=== PATIENT | female | born 1940 | race Caucasian/White ===

== ENCOUNTER → 2016-07-28 | Outpatient (CLI) | payer OTHER, BC ==
[~2016-07-28] MED LIST: ASPEC325 PO; ATOR-26 PO; CALCTAB5 PO; CHOL100010 PO; CLOP1TAB15 PO; COLE625T PO; DESO0.259 TOP; LISI5TAB3 PO; METO25TA3 PO; METO50TA7 PO; MULT-190 PO; MULT-845 PO; OMEG10007 PO; PBUNK PO; PSYL55.43 PO
== END | disposition home or self-care (01) ==
LOC: C.LABSPEC 16:11
PROVIDERS: ATTEND Obstetrics & Gynecology
DX: N89.8 Other specified noninflammatory disorders of vagina (principal)

== ENCOUNTER → 2016-12-08 | Outpatient (CLI) | payer OTHER, BC ==
[2016-12-08 09:45] LABS: BASO % 0.6 %; BASO ABS # 0.05 K/uL (0-0.2); COMPLETE YES; EOS % 2.4 %; HEMATOCRIT 39.5 % (37-47); IG% 0.4 %; LYMPH % 32.8 %; LYMPH ABS # 2.62 K/uL (1.2-3.4); MEAN CELL VOLUME 97.8 fL (80-100); MEAN CORPUSCULAR HEMOGLOBIN 32.2 pg (25-34); MEAN CORPUSCULAR HGB CONC 32.9 g/dl (32-36); MEAN PLATELET VOLUME 10.3 fL (7.4-10.4); MONO % 9.3 %; NEUT % 54.5 %; PLATELET COUNT 219 K/uL (130-400); RED BLOOD COUNT 4.04 M/uL (4.2-5.4); WHITE BLOOD COUNT 7.99 K/uL (4.8-10.8)
[2016-12-08 10:17] LABS: ALT/SGPT 30 U/L (12-78); BLOOD UREA NITROGEN 16 mg/dl (7-18); BUN/CREATININE RATIO 17.7 (10-20); CALCIUM 9.3 mg/dl (8.5-10.1); CARBON DIOXIDE 27 mmol/L (21-32); CHLORIDE 106 mmol/L (98-107); CHOLESTEROL 171 mg/dl (0-200); CREATININE 0.91 mg/dl (0.60-1.20); GLUCOSE 75 mg/dl (70-99); POTASSIUM 3.9 mmol/L (3.5-5.1); SODIUM 140 mmol/L (136-145); TRIGLYCERIDES 200 mg/dl (0-150); VERY LOW DENSITY LIPOPROT CALC 40 mg/dl
[2016-12-08 10:28] LABS: ALB/GLOB RATIO 0.9 (0.9-2); ALKALINE PHOSPHATASE 70 U/L (45-117); AST/SGOT 33 U/L (15-37); CHOLESTEROL/HDL RATIO 2.3; HDL CHOLESTEROL 75 mg/dl; LDL CHOLESTEROL CALCULATED 56 mg/dl
== END | disposition home or self-care (01) ==
LOC: C.LAB 08:25
PROVIDERS: ATTEND Internal Medicine Geriatric Medicine
DX: I25.10 Atherosclerotic heart disease of native coronary artery without angina pectoris (principal); I10 Essential (primary) hypertension; M81.0 Age-related osteoporosis without current pathological fracture; M19.90 Unspecified osteoarthritis, unspecified site; E55.9 Vitamin D deficiency, unspecified; J45.909 Unspecified asthma, uncomplicated; G40.909 Epilepsy, unspecified, not intractable, without status epilepticus

== ENCOUNTER → 2017-02-16 | Outpatient (CLI) | payer OTHER, BC ==
--- NOTE | 2017-02-16 13:09 | MAMMOGRAPHY REPORT ---
BILATERAL DIGITAL SCREENING MAMMOGRAM WITH CAD: 02/16/2017 CLINICAL HISTORY: Routine screening. TECHNIQUE: Bilateral CC and MLO views were obtained. Current study was also evaluated with a Compute r Aided Detection (CAD) system. COMPARISON: Comparison is made to exams dated: 02/12/2016 mammogram, 02/08/2015 mammogram, 02/06/2014 ma mmogram, 02/03/2013 mammogram, 02/03/2012 mammogram, and 01/31/2011 mammogram - [facility] BREAST COMPOSITION: There are scattered areas of fibroglandular density in both breasts. FINDINGS: There are minimal vascular calcifications in the breasts. No suspicious mass, architectura l distortion or cluster of suspicious microcalcifications is seen. IMPRESSION: ACR BI-RADS CATEGORY 1: NEGATIVE There is no mammographic evidence of malignancy. A 1 year screening mammogram is recommended. The pa tient will receive written notification of the results. Approximately 10% of breast cancers are not detected with mammography. A negative mammographic report should not delay biopsy if a clinically suggestive mass is present. Tiara Franco M.D. ay/:02/16/2017 10:28:03 Forestry Aide: Taye DELONG(R)(M), [facility] letter sent: Normal 1/2 BI-RADS Code: ACR BI-RADS Category 1: Negative
== END | disposition home or self-care (01) ==
LOC: C.MAMM 09:53
PROVIDERS: ATTEND Internal Medicine Geriatric Medicine
DX: Z12.31 Encounter for screening mammogram for malignant neoplasm of breast (principal)

== ENCOUNTER → 2017-03-18 | Outpatient (CLI) | payer OTHER, BC ==
--- NOTE | 2017-03-18 09:52 | DIAGNOSTIC IMAGING REPORT ---
(RENAL)RETROPERITON COMP HISTORY: 76 years-old Female R31.29 Microscopic [id number] Renal cyst, [id number] 2.7 cm septated cyst of the upper pole left kidney seen on comparison ultrasound 09/02/2012. COMPARISON: Renal ultrasound 09/02/2012, CT 01/01/2015 TECHNIQUE: Multiple real-time sonographic images of the kidneys and urinary bladder were obtained assessing grayscale appearance and color flow FINDINGS: Right kidney measures 10.3 x 3.7 x 4.1 cm and demonstrates no renal calculi, hydronephrosis or focal mass lesions. Cortical medullary differentiation is preserved. Left kidney measures 9.5 x 4.8 x 4.0 cm and demonstrates no renal calculi or hydronephrosis. Mildly complex cyst of the superior pole measures up to 1.8 cm, previously measuring up to 2.[address] Previously noted 7 mm lesion of the lower pole left kidney is not clearly delineated on this study. Echogenic 8 mm lesion of the inferior pole left kidney is again seen compatible with angiomyolipoma as seen on comparison CT. Mildly increased echogenicity of the bilateral kidneys suggests underlying medical renal disease. Urinary bladder is only partially distended and is unremarkable. Ureteral jets not identified. IMPRESSION: 1. No renal calculi or hydronephrosis. 2. Previously noted 7 mm lesion of the lower pole left kidney is not clearly identified on this study. 3. Mildly complex cyst of the superior pole left kidney, 1.8 cm has slightly decreased in size from comparison. 4. 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 The above report was generated using voice recognition software. It may contain grammatical, syntax or spelling errors. Electronically signed by: Chris Drummond M.D. 03/18/2017 9:50 AM Dictated Date/Time: 03/18/2017 9:43 AM
== END | disposition home or self-care (01) ==
LOC: C.ULTR 09:07
PROVIDERS: ATTEND Urology
DX: R31.29 Other microscopic hematuria (principal); N28.1 Cyst of kidney, acquired; D17.71 Benign lipomatous neoplasm of kidney

== ENCOUNTER → 2017-04-15 | Outpatient (CLI) | payer OTHER, BC | END | disposition home or self-care (01) | LOC: C.LABSPEC 13:34 | PROVIDERS: ATTEND Obstetrics & Gynecology | DX: N89.8 Other specified noninflammatory disorders of vagina (principal) ==

== ENCOUNTER → 2017-04-15 | Outpatient (CLI) | payer OTHER, BC | END | disposition home or self-care (01) | LOC: C.PAPS 14:26 | PROVIDERS: ATTEND Obstetrics & Gynecology | DX: Z12.4 Encounter for screening for malignant neoplasm of cervix (principal); N95.2 Postmenopausal atrophic vaginitis ==

== ENCOUNTER → 2017-07-22 | Day surgery (SDC) | payer OTHER, BC ==
[2017-06-09 09:55] VITALS: BMI 27.0
[2017-07-10 09:49] VITALS: Ht 162.6 cm; Wt 74.5 kg
[~2017-07-22] VITALS: Ht 162.6 cm; Wt 74.5 kg
[~2017-07-22] MED LIST changes: +500ML BSS 0.3ML EPI 1:1000PF IRRIG ONE; +ACETAMINOPHEN 325 MG TAB PO PRN; +AMVISC PLUS 0.8ML SYRINGE INT OCU ONE; -ASPEC325 PO; +ASPI-435 PO; +ATROPINE SULFATE 0.1 MG/ML 5ML SYR IV PRN; +AcetaZOLAMIDE 250 MG TAB PO SCH; +BETAXOLOL HCL 0.25% OP SUSP PER DROP CHARGE OPR SCH; +BRIMONIDINE TART 0.2% OP SOLN PER DROP CHARGE ONE; +BSS FLUSH ONE; +CALC500T83 PO; -CALCTAB5 PO; +CHOL1000 PO; -CHOL100010 PO; -COLE625T PO; +CYCL0.052 OP; +CYCLOPENTOLATE HCL 1% OP SOLN PER DROP CHARGE OPR SCH; -DESO0.259 TOP; +ENDOCOAT 0.85ML SYRINGE INT OCU ONE; +EpHEDrine SULFATE INJ 50 MG/ML AMP IV PRN; +EpINEphrine INJ 1MG/ML AMP 1 MG/ML AMP ONE; +LACTATED RINGER'S 1000ML 500 ML IV SCH; +LIDOCAINE 4% OP SOLN DROP CHARGE ONE; +LIDOCAINE 4% OP SOLN DROP CHARGE OPR SCH; +LIDOCAINE HCL 1% MPF 2 ML VIAL ONE; +LISI5TAB PO; -LISI5TAB3 PO; -METO25TA3 PO; -METO50TA7 PO; +METO50TA8 PO; +MIDAZOLAM HCL 1 MG/ML 2ML VIAL ONE; +MIX: 4ML BSS 1ML EPI 1:1000 PF INSTIL ONE; +MOXIFLOXACIN OPH SOLN PER DROP CHARGE ONE; +MOXIFLOXACIN OPH SOLN PER DROP CHARGE OPR SCH; +OCUCOAT 1 ML SOLN IO ONE; -PBUNK PO; +PHENOBARBITAL PO; +PHENYLEPHRINE HCL 2.5% OP SOLN PER DROP CHARGE OPR SCH; +POVIDONE-IODINE OP SOLN 30 ML BTL ONE; +PROPARACAINE 0.5% OP SOLN PER DROP CHARGE OPR SCH; +PSYL0.524 PO; -PSYL55.43 PO; +TOBRAMYCIN/DEXAMETHASONE OPH OINT PER APPLN CHARGE ONE; +TROPICAMIDE 1% OP SOLN PER DROP CHARGE OPR SCH; +WLC625 PO; +ZOLE5INJ IV
--- NOTE | 2017-07-22 07:27 | History & Physical Bridge - SC ---
H&P Re-Evaluation Bridge Note: I have examined the patient, reviewed the History & Physical and in the interval since the performance of the History & Physical I have noted the following changes of clinical significance: No changes noted
[2017-07-22] MEDS: PHENYLEPHRINE HCL 2.5% OP SOLN PER DROP CHARGE OPR SCH ×2 (08:01→08:10)
[2017-07-22] MEDS: TROPICAMIDE 1% OP SOLN PER DROP CHARGE OPR SCH ×2 (08:03→08:11)
[2017-07-22] MEDS: CYCLOPENTOLATE HCL 1% OP SOLN PER DROP CHARGE OPR SCH ×2 (08:04→08:12)
[2017-07-22] MEDS: MOXIFLOXACIN OPH SOLN PER DROP CHARGE OPR SCH ×2 (08:05→08:08)
--- NOTE | 2017-07-22 09:01 | [facility] Operative Report ---
Operative Report Date of Service Jul 22, 2017. Operative Report 1. PREOPERATIVE DIAGNOSIS: Senile nuclear cataract, right eye. 2. POSTOPERATIVE DIAGNOSIS: Senile nuclear cataract, right eye. 3. PROCEDURE: Phacoemulsification of right cataract with posterior chamber lens implant, type Bausch [employer] Lomb, model MI60L, power +15 diopters. ANESTHESIA: Local standby. SURGEON: Dr. Albert. COMPLICATIONS: None. OPERATING TIME: 10 minutes. 4. OPERATION AND FINDINGS: DESCRIPTION OF PROCEDURE: The right pupil was dilated. The anesthetic was administered using a topical technique. The right eye was prepped and draped. A speculum was placed. A clear corneal incision was formed. The chamber was filled with Amvisc Plus and Endocoat. Epinephrine solution was used. A paracentesis was placed. A capsulorrhexis was performed. The nucleus was hydrodissected. The lens was removed with phacoemulsification. Time was 4.16 seconds. The aspiration unit was used to remove the cortex. The capsule was filled with Amvisc Plus. The lens implant was folded and placed into the capsule. The incision was hydrated. The Amvisc was aspirated. The wound was secure. The chamber was deep. The pupil was round. Brimonidine, TobraDex ointment and Vigamox solution were placed. The speculum was removed. The patient was returned to the Recovery Room in stable condition. I attest to the content of the Intraoperative Record and any orders documented therein. Any exceptions are noted below. The scribe's documentation has been prepared in my presence, under my direction and personally reviewed by me in its entirety. I confirm that the note above accurately reflects all work, treatment, procedures, and medical decision making performed by me. I personally scribed for Claudy Albert M.D. (NEELA) on 07/22/17 at 09:01. Electronically submitted by Cee Mack ([email or web address]).
--- NOTE | 2017-07-22 09:04 | Discharge Instructions-SurgCtr ---
Discharge Instructions Date of Service Jul 22, 2017. Visit Reason for Visit: Cataract Right Eye Discharge Discharge Diagnosis / Problem: lens implant right eye Discharge Goals Goal(s): Improve function Activity Recommendations Activity Limitations: resume your previous activity Lifting Limitations: no more than 10 pounds Exercise/Sports Limitations: gradually increase as tolerated May Resume Sexual Activity: when tolerated Shower/Bathe: tomorrow Driving or Machine Use: resume 1 day after discharge Anesthesia . Post Anesthesia Instructions: If you have had General Anesthesia or IV Sedation: * Do not drive today. * Resume driving when surgeon permits. * Do not make important decisions or sign legal documents today. * Call surgeon for: 1. Temperature elevations greater than 101 degrees F. 2. Uncontrollable pain. 3. Excessive bleeding. 4. Persistent nausea and vomiting. 5. Medication intolerance (nausea, vomiting or rash). * For nausea and vomiting use only clear liquids such as: tea, soda, bouillon until nausea subsides, then gradually increase diet as tolerated. * If you have any concerns or questions, call your surgeon's office. If physician is unavailable and it is an emergency, call 911 or go to the nearest emergency room. . Instructions / Follow-Up Instructions / Follow-Up ACTIVITY RECOMMENDATIONS: * Light activities. * Mild irritation and blurred vision are common for the first few days. * You may walk outside, read, watch television. * Redness around the white part of the eye is common. MEDICATIONS: Resume previous medications unless instructed otherwise by your surgeon. * Take white Diamox (Acetazolamide) tablet at 1 pm today. Start all eye drops at 1 pm today: * Eye drops (today and tomorrow): Prednisone - one drop in operative eye every 3 hours while awake Ofloxacin - one drop in operative eye every 3 hours while awake Ilevro - one drop in operative eye once daily Continue Restasis as usual in Left eye only. SPECIAL CARE INSTRUCTIONS: * Tape plastic shield over eye to sleep at night. Call your doctor at with any concerns or problems. FOLLOW UP VISIT: Follow-up with Dr Albert at [place] office as scheduled. Diet Recommendations Home Diet: no limitations Procedures Procedures Performed: Right Cataract Phacoemulsification With Intraocular Lens Implant Pending Studies Studies pending at discharge: no Medical Emergencies . Who to Call and When: Medical Emergencies: If at any time you feel your situation is an emergency, please call 911 immediately. . Non-Emergent Contact Non-Emergency issues call your: Security Delivery Specialist Call Non-Emergent contact if: your pain is not controlled [phone] . . "Provider Documentation" section prepared by Claudy Albert. .
[2017-07-22 09:05] VITALS: TEMP 36.4
[2017-07-22 09:19] VITALS: BP 119/74; PULSE 68; O2SAT 96
--- NOTE | 2017-07-22 09:24 | Anesthesia Progress Nt - [facility] ---
Anesthesia Post Op Note Date & Time Jul 22, 2017 at 09:23 Vital Signs Pain Intensity: 0 Vital Signs Past 12 Hours Date Time Temp Pulse Resp B/P (MAP) Pulse Ox O2 Delivery O2 Flow Rate FiO2 07/22/17 09:19 68 20 119/74 (89) 96 Room Air 07/22/17 09:05 36.4 65 16 113/73 (86) 97 Room Air 07/22/17 07:37 36.4 76 16 145/84 (104) 94 Room Air Notes Mental Status: alert / awake / arousable, participated in evaluation Pt Amnestic to Procedure: Yes Nausea / Vomiting: adequately controlled Pain: adequately controlled Airway Patency, RR, SpO2: stable & adequate BP & HR: stable & adequate Hydration State: stable & adequate Anesthetic Complications: no major complications apparent
== END | disposition home or self-care (01) ==
LOC: X.SURG 07:12
PROVIDERS: ATTEND Specialist
DX: H25.11 Age-related nuclear cataract, right eye (principal); I10 Essential (primary) hypertension; I51.9 Heart disease, unspecified; Z79.899 Other long term (current) drug therapy

== ENCOUNTER → 2017-08-12 | Day surgery (SDC) | payer OTHER, BC ==
[2017-08-03 09:54] VITALS: Ht 162.6 cm; Wt 74.5 kg
[~2017-08-12] VITALS: Ht 162.6 cm; Wt 74.5 kg
[~2017-08-12] MED LIST changes: +BETAXOLOL HCL 0.25% OP SUSP PER DROP CHARGE OPL SCH; -BETAXOLOL HCL 0.25% OP SUSP PER DROP CHARGE OPR SCH; -CYCLOPENTOLATE HCL 1% OP SOLN PER DROP CHARGE OPR SCH; +FENTANYL CITRATE INJ 50 MCG/1 ML 2 ML VIAL IV PRN; +FLUMAZENIL 0.1 MG/1 ML 10 ML VIAL IV PRN; +HYDROmorphone INJ 2 MG/ML SYR/VIAL IV PRN; +LABETALOL HCL IV 5 MG/ML 20ML IV PRN; +LIDOCAINE 4% OP SOLN DROP CHARGE OPL SCH; -LIDOCAINE 4% OP SOLN DROP CHARGE OPR SCH; +MEPERIDINE HCL 25 MG/ML CARP IV PRN; -MOXIFLOXACIN OPH SOLN PER DROP CHARGE OPR SCH; +NALOXONE HCL 0.4 MG/1 ML VIAL/CARP IV PRN; -OCUCOAT 1 ML SOLN IO ONE; +ONDANSETRON INJ 2 MG/ML 2 ML VIAL IV PRN; +PHENYLEPHRINE 100MCG/ML 5ML SYR IV PRN; -PHENYLEPHRINE HCL 2.5% OP SOLN PER DROP CHARGE OPR SCH; +PROPARACAINE 0.5% OP SOLN PER DROP CHARGE OPL SCH; -PROPARACAINE 0.5% OP SOLN PER DROP CHARGE OPR SCH; -TROPICAMIDE 1% OP SOLN PER DROP CHARGE OPR SCH
[2017-08-12] MEDS: PHENYLEPHRINE HCL 2.5% OP SOLN PER DROP CHARGE OPL SCH ×2 (07:18→07:23)
[2017-08-12] MEDS: TROPICAMIDE 1% OP SOLN PER DROP CHARGE OPL SCH ×2 (07:19→07:24)
[2017-08-12] MEDS: CYCLOPENTOLATE HCL 1% OP SOLN PER DROP CHARGE OPL SCH ×2 (07:20→07:25)
[2017-08-12] MEDS: MOXIFLOXACIN OPH SOLN PER DROP CHARGE OPL SCH ×2 (07:21→07:31)
--- NOTE | 2017-08-12 08:06 | [facility] Operative Report ---
Operative Report Date of Service Aug 12, 2017. Operative Report 1. PREOPERATIVE DIAGNOSIS: Senile nuclear cataract, left eye. 2. POSTOPERATIVE DIAGNOSIS: Senile nuclear cataract, left eye. 3. PROCEDURE: Phacoemulsification of left cataract with posterior chamber lens implant, type Bausch [employer] Lomb, model MI60L, power +15.0 diopters. ANESTHESIA: Local standby. SURGEON: Dr. Albert. COMPLICATIONS: None. OPERATING TIME: 10 minutes. 4. OPERATION AND FINDINGS: DESCRIPTION OF PROCEDURE: The left pupil was dilated. The anesthetic was administered using a topical technique. The left eye was prepped and draped. A speculum was placed. A clear corneal incision was formed. The chamber was filled with Amvisc Plus and Endocoat. Epinephrine solution was used. A paracentesis was placed. A capsulorrhexis was performed. The nucleus was hydrodissected. The lens was removed with phacoemulsification. Time was 3.36 seconds. The aspiration unit was used to remove the cortex. The capsule was filled with Amvisc Plus. The lens implant was folded and placed into the capsule. The incision was hydrated. The Amvisc was aspirated. The wound was secure. The chamber was deep. The pupil was round. Brimonidine, TobraDex ointment and Vigamox solution were placed. The speculum was removed. The patient was returned to the Recovery Room in stable condition. I attest to the content of the Intraoperative Record and any orders documented therein. Any exceptions are noted below. The scribe's documentation has been prepared in my presence, under my direction and personally reviewed by me in its entirety. I confirm that the note above accurately reflects all work, treatment, procedures, and medical decision making performed by me. I personally scribed for Claudy Albert M.D. (NEELA) on 08/12/17 at 08:06. Electronically submitted by Cee Mack ([email or web address]).
--- NOTE | 2017-08-12 08:08 | Discharge Instructions-SurgCtr ---
Discharge Instructions Date of Service Aug 12, 2017. Visit Reason for Visit: Cataract Left Eye Discharge Discharge Diagnosis / Problem: lens implant left eye Discharge Goals Goal(s): Improve function Activity Recommendations Activity Limitations: resume your previous activity Lifting Limitations: no more than 10 pounds Exercise/Sports Limitations: gradually increase as tolerated May Resume Sexual Activity: when tolerated Shower/Bathe: tomorrow Driving or Machine Use: resume 1 day after discharge Anesthesia . Post Anesthesia Instructions: If you have had General Anesthesia or IV Sedation: * Do not drive today. * Resume driving when surgeon permits. * Do not make important decisions or sign legal documents today. * Call surgeon for: 1. Temperature elevations greater than 101 degrees F. 2. Uncontrollable pain. 3. Excessive bleeding. 4. Persistent nausea and vomiting. 5. Medication intolerance (nausea, vomiting or rash). * For nausea and vomiting use only clear liquids such as: tea, soda, bouillon until nausea subsides, then gradually increase diet as tolerated. * If you have any concerns or questions, call your surgeon's office. If physician is unavailable and it is an emergency, call 911 or go to the nearest emergency room. . Instructions / Follow-Up Instructions / Follow-Up ACTIVITY RECOMMENDATIONS: * Light activities. * Mild irritation and blurred vision are common for the first few days. * You may walk outside, read, watch television. * Redness around the white part of the eye is common. MEDICATIONS: Resume previous medications unless instructed otherwise by your surgeon. * Take white Diamox (Acetazolamide) tablet at 1 pm today. Start all eye drops at 1 pm today: * Eye drops (today and tomorrow): Prednisone - one drop in operative eye every 3 hours while awake Ofloxacin - one drop in operative eye every 3 hours while awake Ilevro - one drop in operative eye once daily SPECIAL CARE INSTRUCTIONS: * Tape plastic shield over eye to sleep at night. Call your doctor at with any concerns or problems. FOLLOW UP VISIT: Follow-up with Dr Albert at [place] office as scheduled. Diet Recommendations Home Diet: no limitations Procedures Procedures Performed: Left Eye Cataract Phacoemulsification With Intraocular Lens Implant Pending Studies Studies pending at discharge: no Medical Emergencies . Who to Call and When: Medical Emergencies: If at any time you feel your situation is an emergency, please call 911 immediately. . Non-Emergent Contact Non-Emergency issues call your: Warehouse Distribution Manager Call Non-Emergent contact if: your pain is not controlled [phone] . . "Provider Documentation" section prepared by Claudy Albert. .
[2017-08-12 08:09] VITALS: TEMP 36.7
--- NOTE | 2017-08-12 08:13 | Anesthesia Progress Nt - [facility] ---
Anesthesia Post Op Note Date & Time Aug 12, 2017 at 08:12 Vital Signs Pain Intensity: 0 Vital Signs Past 12 Hours Date Time Temp Pulse Resp B/P (MAP) Pulse Ox O2 Delivery O2 Flow Rate FiO2 08/12/17 07:07 37.3 88 16 143/89 (107) 95 Room Air Notes Mental Status: alert / awake / arousable, participated in evaluation Pt Amnestic to Procedure: Yes Nausea / Vomiting: adequately controlled Pain: adequately controlled Airway Patency, RR, SpO2: stable & adequate BP & HR: stable & adequate Hydration State: stable & adequate Anesthetic Complications: no major complications apparent The patient is awake and her vitals are stable.
[2017-08-12 08:29] VITALS: BP 130/80; PULSE 71; O2SAT 97
== END | disposition home or self-care (01) ==
LOC: X.SURG 06:50
PROVIDERS: ATTEND Specialist
DX: H25.12 Age-related nuclear cataract, left eye (principal); I10 Essential (primary) hypertension; I51.9 Heart disease, unspecified; Z88.0 Allergy status to penicillin; Z88.8 Allergy status to other drugs, medicaments and biological substances; Z79.899 Other long term (current) drug therapy; Z79.02 Long term (current) use of antithrombotics/antiplatelets

== ENCOUNTER → 2017-09-02 | Outpatient (CLI) | payer OTHER, BC ==
[~2017-09-02] MED LIST changes: -500ML BSS 0.3ML EPI 1:1000PF IRRIG ONE; -ACETAMINOPHEN 325 MG TAB PO PRN; -AMVISC PLUS 0.8ML SYRINGE INT OCU ONE; -ATROPINE SULFATE 0.1 MG/ML 5ML SYR IV PRN; -AcetaZOLAMIDE 250 MG TAB PO SCH; -BETAXOLOL HCL 0.25% OP SUSP PER DROP CHARGE OPL SCH; -BRIMONIDINE TART 0.2% OP SOLN PER DROP CHARGE ONE; -BSS FLUSH ONE; -ENDOCOAT 0.85ML SYRINGE INT OCU ONE; -EpHEDrine SULFATE INJ 50 MG/ML AMP IV PRN; -EpINEphrine INJ 1MG/ML AMP 1 MG/ML AMP ONE; -FENTANYL CITRATE INJ 50 MCG/1 ML 2 ML VIAL IV PRN; -FLUMAZENIL 0.1 MG/1 ML 10 ML VIAL IV PRN; -HYDROmorphone INJ 2 MG/ML SYR/VIAL IV PRN; -LABETALOL HCL IV 5 MG/ML 20ML IV PRN; -LACTATED RINGER'S 1000ML 500 ML IV SCH; -LIDOCAINE 4% OP SOLN DROP CHARGE ONE; -LIDOCAINE 4% OP SOLN DROP CHARGE OPL SCH; -LIDOCAINE HCL 1% MPF 2 ML VIAL ONE; -MEPERIDINE HCL 25 MG/ML CARP IV PRN; -MIDAZOLAM HCL 1 MG/ML 2ML VIAL ONE; -MIX: 4ML BSS 1ML EPI 1:1000 PF INSTIL ONE; -MOXIFLOXACIN OPH SOLN PER DROP CHARGE ONE; -NALOXONE HCL 0.4 MG/1 ML VIAL/CARP IV PRN; -ONDANSETRON INJ 2 MG/ML 2 ML VIAL IV PRN; -PHENYLEPHRINE 100MCG/ML 5ML SYR IV PRN; -POVIDONE-IODINE OP SOLN 30 ML BTL ONE; -PROPARACAINE 0.5% OP SOLN PER DROP CHARGE OPL SCH; -TOBRAMYCIN/DEXAMETHASONE OPH OINT PER APPLN CHARGE ONE
[2017-09-02 09:38] LABS: BASO % 0.2 %; BASO ABS # 0.02 K/uL (0-0.2); EOS % 2.7 %; EOS ABS # 0.24 K/uL (0-0.5); HEMATOCRIT 39.6 % (37-47); HEMOGLOBIN 12.9 g/dL (12.0-16.0); IG# 0.03 K/uL (0.00-0.02); LYMPH % 25.8 %; LYMPH ABS # 2.25 K/uL (1.2-3.4); MEAN CELL VOLUME 97.5 fL (80-100); MEAN CORPUSCULAR HEMOGLOBIN 31.8 pg (25-34); MEAN CORPUSCULAR HGB CONC 32.6 g/dl (32-36); MEAN PLATELET VOLUME 10.2 fL (7.4-10.4); MONO % 8.5 %; MONO ABS # 0.74 K/uL (0.11-0.59); NEUT % 62.5 %; NEUT ABS # 5.45 K/uL (1.4-6.5); PLATELET COUNT 208 K/uL (130-400); RED CELL DISTRIBUTION WIDTH CV 13.2 % (11.5-14.5); RED CELL DISTRIBUTION WIDTH SD 47.2 fL (36.4-46.3); WHITE BLOOD COUNT 8.73 K/uL (4.8-10.8)
[2017-09-02 09:52] LABS: ALBUMIN 3.2 gm/dl (3.4-5.0); BLOOD UREA NITROGEN 15 mg/dl (7-18); CALCIUM 8.9 mg/dl (8.5-10.1); CARBON DIOXIDE 28 mmol/L (21-32); CREATININE 1.01 mg/dl (0.60-1.20); GLUCOSE 90 mg/dl (70-99); POTASSIUM 3.7 mmol/L (3.5-5.1); SODIUM 139 mmol/L (136-145)
[2017-09-02 10:11] LABS: ALKALINE PHOSPHATASE 75 U/L (45-117); ALT/SGPT 22 U/L (12-78); AST/SGOT 26 U/L (15-37); CHOLESTEROL 159 mg/dl (0-200); LDL CHOLESTEROL CALCULATED 62 mg/dl; TOTAL PROTEIN 7.2 gm/dl (6.4-8.2)
== END | disposition home or self-care (01) ==
LOC: C.LAB 08:29
PROVIDERS: ATTEND Physician Assistant Medical
DX: Z00.00 Encounter for general adult medical examination without abnormal findings (principal); I25.10 Atherosclerotic heart disease of native coronary artery without angina pectoris; M81.0 Age-related osteoporosis without current pathological fracture; E78.5 Hyperlipidemia, unspecified; I10 Essential (primary) hypertension; J45.909 Unspecified asthma, uncomplicated; G40.909 Epilepsy, unspecified, not intractable, without status epilepticus; E55.9 Vitamin D deficiency, unspecified; D17.71 Benign lipomatous neoplasm of kidney; R23.9 Unspecified skin changes

== ENCOUNTER → 2017-12-21 | Outpatient (CLI) | payer OTHER, BC | END | disposition home or self-care (01) | LOC: C.MAMM 13:04 | PROVIDERS: ATTEND Physician Assistant Medical | DX: M81.0 Age-related osteoporosis without current pathological fracture (principal) ==

== ENCOUNTER → 2018-01-08 | Outpatient (CLI) | payer OTHER, BC ==
[2018-01-08 09:37] LABS: BASO % 0.6 %; BASO ABS # 0.05 K/uL (0-0.2); EOS ABS # 0.35 K/uL (0-0.5); HEMATOCRIT 39.7 % (37-47); HEMOGLOBIN 12.9 g/dL (12.0-16.0); IG# 0.05 K/uL (0.00-0.02); LYMPH % 25.5 %; LYMPH ABS # 2.23 K/uL (1.2-3.4); MEAN CELL VOLUME 97.8 fL (80-100); MEAN CORPUSCULAR HEMOGLOBIN 31.8 pg (25-34); MEAN CORPUSCULAR HGB CONC 32.5 g/dl (32-36); MEAN PLATELET VOLUME 10.5 fL (7.4-10.4); MONO % 10.8 %; MONO ABS # 0.94 K/uL (0.11-0.59); NEUT % 58.5 %; NEUT ABS # 5.11 K/uL (1.4-6.5); PLATELET COUNT 259 K/uL (130-400); RED CELL DISTRIBUTION WIDTH CV 13.4 % (11.5-14.5); RED CELL DISTRIBUTION WIDTH SD 48.2 fL (36.4-46.3); WHITE BLOOD COUNT 8.73 K/uL (4.8-10.8)
[2018-01-08 09:44] LABS: BLOOD UREA NITROGEN 18 mg/dl (7-18); CALCIUM 8.6 mg/dl (8.5-10.1); CARBON DIOXIDE 28 mmol/L (21-32); CREATININE 0.95 mg/dl (0.60-1.20); GLUCOSE 82 mg/dl (70-99); POTASSIUM 4.1 mmol/L (3.5-5.1); SODIUM 138 mmol/L (136-145)
== END | disposition home or self-care (01) ==
LOC: C.LAB 07:54
PROVIDERS: ATTEND Physician Assistant Medical
DX: Z00.00 Encounter for general adult medical examination without abnormal findings (principal); I25.10 Atherosclerotic heart disease of native coronary artery without angina pectoris; M81.0 Age-related osteoporosis without current pathological fracture; E78.5 Hyperlipidemia, unspecified; I10 Essential (primary) hypertension; J45.909 Unspecified asthma, uncomplicated; G40.909 Epilepsy, unspecified, not intractable, without status epilepticus; E55.9 Vitamin D deficiency, unspecified; D17.71 Benign lipomatous neoplasm of kidney; R23.9 Unspecified skin changes

== ENCOUNTER 2022-06-24 09:25 | Inpatient (IN) ==
[2022-06-24] MEDS ORDERED: SODIUM CHLORIDE 0.9% 500 ML IV SCH (10:00)
[2022-06-24 10:25] LABS: Hematocrit (blood only) 43.5 % (34.1-44.9); Hemoglobin 14.2 g/dl (12.0-16.0); Mean Corpuscular Hemoglobin 32.3 pg (25.0-34.0); Mean Corpuscular Hgb Conc 32.6 g/dL (32.0-36.0); Mean Corpuscular Volume 98.9 fL (80.0-100.0); Platelet Count 264 K/uL (130-400); RDW Coefficient of Variation 13.2 % (11.5-14.5); RDW Standard Deviation 48.4 fL (36.4-46.3); White Blood Count 12.27 K/ul (4.8-10.8)
[2022-06-24 10:29] LABS: Albumin Globulin Ratio 1.1 (0.9-2); Albumin Level 3.2 gm/dl (3.4-5.0); BUN Creatinine Ratio 24.4 (10-20); Bilirubin,Total 0.8 mg/dl (0.2-1.0); Calcium 8.1 mg/dl (8.5-10.1); Creatinine Clr Calc Pharmacy 34.6 ml/min; Est GFR (African American) 43.5 ml/min; Est GFR (Non-African American) 37.6 ml/min; Globulin 2.8 gm/dl (2.5-4.0); Magnesium 1.7 mg/dl (1.7-2.4); Potassium 4.2 mmol/L (3.5-5.1)
[2022-06-24 10:37] LABS: Troponin I High Sensitivity 89.7 pg/ml (0-14)
[2022-06-24 11:06] LABS: Basophils # (auto) 0.02 K/uL (0-0.2); Basophils % (auto) 0.2 %; Eosinophils # (auto) 0.05 K/uL (0-0.50); Eosinophils % (auto) 0.4 %; Immature Granulocytes # (auto) 0.04 K/uL (0.00-0.02); Immature Granulocytes % (auto) 0.3 %; Lymphocytes # (auto) 3.55 K/uL (1.2-3.4); Lymphocytes % (auto) 28.9 %; Monocytes # (auto) 0.31 K/uL (0.24-0.82); Monocytes % (auto) 2.5 %; Neutrophils % (auto) 67.7 %; Toxic Vacuolation 2+
--- NOTE | 2022-06-24 11:10 | Emergency Department Note ---
Impression & Plan Allergic reaction, Weakness, Falls, Elevated troponin ED Provider Note INFORMANT: Patient and son ED PROVIDER(S): Zaki Nick DO CHIEF COMPLAINT: Allergic reaction, weakness, falls PLAN: Disposition: Admission Condition: Stable Outpatient prescription management: none Referral: I spoke with the hospitalist, who will see the patient for admission/observation and further evaluation and consultation. MEDICAL DECISION MAKING: This is a 81-year-old female who presents to the ED with a chief complaint of recurrence of allergic reaction. The patient was seen here 3 days in a row for the same issue. She is believed to possibly have a allergic reaction to Macrob id. She was treated as an outpatient yesterday and the day before that. The patient states that she is becoming weak over the past several days since her issues started. She stopped taking Macrobid on of last week. She has not taken it since. She has recurrence of swelling of her face to the point where EMS provided her with subcutaneous epinephrine, IV Benadryl, IV Solu- Medrol and IV fluids during her transport here. The patient's lips were swollen. Her eyes were swollen shut. She complained of a swollen tongue as well. Those have improved since she was treated by EMS. The patient fell last night and was on the floor through the night, according to her son. She states that she has not been eating or drinking well because of her symptoms. She feels lightheaded when she gets up. She does not think that she passed out. The patient's exam does reveal some facial edema as well as erythema in various parts of her body. Her lungs are clear. Vital signs are stable. White blood cell count reveals a mild leukocytosis possibly related to recent Paradione use. Her CK was 688 suggesting some mild rhabdomyolysis possibly from being on the floor. The troponin is elevated 89.7. Her EKG shows a sinus tach at a rate of 110. This is concerning for some myocardial ischemia although no acute PA is suspected. A COVID swab was negative and a chest x-ray did not show acute process. The patient was told the results. Because of her symptoms and ongoing recurrence of allergic reaction without improvement with outpatient medications and on certain source, she will be seen by the hospitalist for further evaluation and care. I did speak with the hospitalist about the patient. Triage Nursing notes reviewed. Vital Signs: reviewed Prior /Outside records reviewed: none Differential diagnosis: Allergic reaction, generalized weakness, electrolyte abnormality, myocardial ischemia, pneumonia, other. Diagnostics, as interpreted by me: 12 lead ECG: Sinus tach at a rate of 110. No ST elevation. No PVCs. Normal QTC Cardiac Monitoring: none Medical decision rules: none Imaging studies: Chest x-ray: No acute disease. No pneumonia or pneumothorax. Procedures: none. Critical care: none. HPI: See MDM above. PAST MEDICAL HISTORY: See Below PAST SURGICAL HISTORY: See Below SOCIAL HISTORY: See Below HOME MEDICATIONS: See Below ALLERGIES: See Below VITALS: See Below PHYSICAL EXAMINATION: CONSTITUTIONAL/VITAL SIGNS: Reviewed GENERAL: Non-toxic in appearance. INTEGUMENTARY: Warm, dry, and Marie. HEAD: Normocephalic. EYES: without scleral icterus. ENT/OROPHARYNX: clear and moist. RESPIRATORY: No increased work of breathing. Lungs clear. CARDIOVASCULAR: Regular rate. Regular rhythm. GI/ABDOMEN: Soft and nontender. . EXTREMITIES: Normal NEUROLOGICAL: Intact without focal deficits. PSYCHIATRIC: Normal affect. MUSCULOSKELETAL: Normal. TRIAGE NURSING DOCUMENTATION REVIEWED. 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 Asthma Blood clot associated with vein wall inflammation Chronic kidney disease Cystocele, midline Dyslipidemia Gastroesophageal reflux disease Glenohumeral arthritis Hearing loss History of allergic drug reaction History of postmenopausal bleeding Hypertension Irritable bowel syndrome Myocardial infarction Nodular thyroid disease (~06/2019) neg FNA Osteoarthritis Osteoporosis PAC (premature atrial contraction) Pessary maintenance Renal cyst, acquired (~06/2019) Seizure disorder Stroke syndrome Vitamin D deficiency Surgical History H/O colonoscopy History of endometrial biopsy History of tonsillectomy Hx of cataract surgery Hx of cholecystectomy S/P knee replacement Family History Father Patient's father is Father At Age 72 Heart disease Mother Patient's mother is Mother At Age 62 Parkinson disease Family/Other Cerebral atherosclerosis Coronary atherosclerosis Denies family history of Ovarian cancer Prostate cancer Myocardial infarction Breast cancer Colorectal cancer Social History Smoking Status: Never smoker Second Hand Exposure: No; Hx Alcohol Use: No Hx Substance Use: No Preferred Language: Yoruba Communication Ability: Effective Visual Impairment: Limited Hearing Ability: Normal Aromatherapist Required: No marital status: / Current Living Situation: Alone current occupational status: employed How many Children do You have: 1 Feels Safe at Home: Yes Childhood Exposure to Second-Hand Smoke: No caffeine: No Dental Care, Regularly: Yes Physical Activity Frequency: Does not Exercise Seatbelt Use: always Sunscreen Use: Yes Allergies Allergies Allergy/AdvReac Type Severity Reaction Status Date / Time influenza virus vaccine tvs Allergy Intermediate rash Verified 06/22/22 17:47 (65 yr and up) [From Fluad (65yr+)(PF)] nickel Allergy Intermediate RASH Verified 06/22/22 17:47 Penicillins Allergy Intermediate RASH Verified 06/22/22 17:47 vaccine adjuvant emulsion Allergy Intermediate rash Verified 06/22/22 17:47 MF59C.1 [From Fluad (65yr+)(PF)] emollient combination no. 46 Allergy Unknown Unknown Verified 06/22/22 17:47 [From Mederma] pneumococcal 7-valent Allergy Unknown Unknown Verified 06/22/22 17:47 conjugate to [From Prevnar] alendronate sodium AdvReac Intermediate CHEST Verified 06/22/22 17:47 DISCOMFORT AND INDIGESTION allantoin AdvReac Mild MEDERMA - Verified 06/22/22 17:47 BLISTERS Home Meds Home Medications Medication Instructions Recorded Confirmed aspirin 81 mg tablet,delayed 81 mg PO DAILY 12/15/18 06/22/22 release (Adult Low Dose Aspirin) multivitamin (Daily Multi-Vitamin 1 tab PO DAILY 03/24/19 06/22/22 tablet) vit C 250 mg-vit E 90 mg-zinc 40 1 tab PO BID 03/29/19 06/22/22 mg-copper 1 km-numwwd-xrkgiu capsule (PreserVision AREDS-2) cholecalciferol (vitamin D3) 125 5,000 units PO DAILY 08/08/19 06/22/22 mcg (5,000 unit) capsule psyllium husk 0.4 gram capsule 0.4 g PO DAILY PRN constipation 10/23/21 06/22/22 (Metamucil) omega 9-yhq-zfx-fish oil 1,000 mg 1 cap PO BID 05/01/22 06/22/22 (120 mg-180 mg) capsule (Fish Oil) calcium carbonate 500 mg calcium 500 mg PO BID 06/22/22 06/22/22 (1,250 mg) tablet lisinopril 5 mg tablet 5 mg PO DAILY 06/22/22 06/22/22 Previous Rx's Medication Instructions Recorded colesevelam 625 mg tablet 625 mg PO DAILY #90 tabs 08/15/21 metoprolol succinate 100 mg 100 mg PO DAILY #90 tabs 01/01/22 tablet,extended release 24 hr (Toprol XL) atorvastatin 80 mg tablet 80 mg PO DAILY #90 tabs 01/21/22 phenobarbital 100 mg tablet 100 mg PO HS #90 tabs 05/02/22 estradiol 0.01% (0.1 mg/gram) 1 g vaginal 3XWK #42.5 grams 06/12/22 vaginal cream methylprednisolone 4 mg tablets in 4 mg PO UD #21 ea 06/22/22 a dose pack (Medrol (Josep)) Results & Data (ED) Vital Signs Vital Signs - 24 hr 06/24/22 09:12 06/24/22 09:12 06/24/22 09:12 Temperature 36.6 C Temperature Source Oral Pulse Rate 116 H Respiratory Rate 16 16 Blood Pressure 101/86 Blood Pressure Mean 91 Pulse Oximetry 94 94 Oxygen Delivery Method Room Air Sepsis Recent Fever Within 48 Hours No Sepsis New/Unexplained Change in Mental Status No Sepsis Action Taken by Nursing No Action Required 06/24/22 09:55 Temperature Temperature Source Pulse Rate 114 H Respiratory Rate 18 Blood Pressure Blood Pressure Mean Pulse Oximetry 94 Oxygen Delivery Method Room Air Sepsis Recent Fever Within 48 Hours Sepsis New/Unexplained Change in Mental Status Sepsis Action Taken by Nursing Laboratory Data 06/24/22 09:42 06/24/22 09:42 Lab Results 06/24/22 06/24/22 06/24/22 Range/Units 09:42 09:42 09:42 WBC 12.27 H (4.8-10.8) K/ul RBC 4.40 (3.93-5.22) M/uL Hgb 14.2 (12.0-16.0) g/dl Hct 43.5 (34.1-44.9) % MCV 98.9 (80.0-100.0) fL MCH 32.3 (25.0-34.0) pg MCHC 32.6 (32.0-36.0) g/dL RDW Std Deviation 48.4 H (36.4-46.3) fL RDW Coeff of Abraham 13.2 (11.5-14.5) % Plt Count 264 (130-400) K/uL MPV 11.0 (9.4-12.3) fL Sodium 138 (136-145) mmol/L Potassium 4.2 (3.5-5.1) mmol/L Chloride 107 (98-107) mmol/L Carbon Dioxide 22 (21-32) mmol/L Anion Gap 9 (3-11) BUN 32 H (6-23) mg/dl Creatinine 1.31 H (0.6-1.2) mg/dl Est Cr Clr Drug Dosing 34.6 ml/min Est GFR ( Amer) 43.5 ml/min Est GFR (Non-Af Amer) 37.6 ml/min BUN/Creatinine Ratio 24.4 H (10-20) Glucose 114 H (70-99(Fasting)) mg/dl Calcium 8.1 L (8.5-10.1) mg/dl Magnesium 1.7 (1.7-2.4) mg/dl Total Bilirubin 0.8 (0.2-1.0) mg/dl AST 60 H (13-39) U/L ALT 28 (7-52) U/L Alkaline Phosphatase 56 (34-104) U/L Total Creatine Kinase 688 H (26-192) U/L Troponin I High Sens 89.7 H* D (0-14) pg/ml Total Protein 6.0 (6.0-8.3) gm/dl Albumin 3.2 L (3.4-5.0) gm/dl Globulin 2.8 (2.5-4.0) gm/dl Albumin/Globulin Ratio 1.1 (0.9-2) TSH 1.190 (0.300-4.500) uIu/ml SARS-CoV-2, RNA, NAAT (NEGATIVE) 06/24/22 Range/Units 10:01 WBC (4.8-10.8) K/ul RBC (3.93-5.22) M/uL Hgb (12.0-16.0) g/dl Hct (34.1-44.9) % MCV (80.0-100.0) fL MCH (25.0-34.0) pg MCHC (32.0-36.0) g/dL RDW Std Deviation (36.4-46.3) fL RDW Coeff of Abraham (11.5-14.5) % Plt Count (130-400) K/uL MPV (9.4-12.3) fL Sodium (136-145) mmol/L Potassium (3.5-5.1) mmol/L Chloride (98-107) mmol/L Carbon Dioxide (21-32) mmol/L Anion Gap (3-11) BUN (6-23) mg/dl Creatinine (0.6-1.2) mg/dl Est Cr Clr Drug Dosing ml/min Est GFR ( Amer) ml/min Est GFR (Non-Af Amer) ml/min BUN/Creatinine Ratio (10-20) Glucose (70-99(Fasting)) mg/dl Calcium (8.5-10.1) mg/dl Magnesium (1.7-2.4) mg/dl Total Bilirubin (0.2-1.0) mg/dl AST (13-39) U/L ALT (7-52) U/L Alkaline Phosphatase (34-104) U/L Total Creatine Kinase (26-192) U/L Troponin I High Sens (0-14) pg/ml Total Protein (6.0-8.3) gm/dl Albumin (3.4-5.0) gm/dl Globulin (2.5-4.0) gm/dl Albumin/Globulin Ratio (0.9-2) TSH (0.300-4.500) uIu/ml SARS-CoV-2, RNA, NAAT NEGATIVE (NEGATIVE) Administered Medications Discontinued Medications Sodium Chloride (Nss) 500 mls @ 999 mls/hr IV .Q31M STAN Stop: 06/24/22 10:30 Last Admin: 06/24/22 09:58 Dose: 999 mls/hr Documented By: DARIO Discharge Plan Visit Data Chief Complaint: Allergic Reaction ED Provider: Zaki Nick Discharge Problem: Allergic reaction, Weakness, Falls, Elevated troponin Patient Disposition: Being Evaluated by Hospitalist Forms Stand Alone Forms: [facility] Prescriptions Prescriptions: No Action colesevelam 625 mg tablet 625 mg PO DAILY Qty: 90 3RF metoprolol succinate [Toprol XL] 100 mg tablet extended release 24 hr 100 mg PO DAILY Qty: 90 3RF atorvastatin 80 mg tablet 80 mg PO DAILY Qty: 90 3RF phenobarbital 100 mg tablet 100 mg PO HS Qty: 90 1RF estradiol 0.01 % (0.1 mg/gram) cream 1 g vaginal 3XWK Qty: 42.5 4RF multivitamin [Daily Multi-Vitamin] tablet 1 tab PO DAILY aspirin [Adult Low Dose Aspirin] 81 mg tablet,delayed release (DR/EC) 81 mg PO DAILY psyllium husk [Metamucil] 0.4 gram capsule 0.4 g PO DAILY PRN (Reason: constipation) omega 9-cvm-zjo-fish oil [Fish Oil] 1,000 mg (120 mg-180 mg) capsule 1 cap PO BID cholecalciferol (vitamin D3) 125 mcg (5,000 unit) capsule 5,000 units PO DAILY PreserVision AREDS-2 [id number] mu-pwsp-xv-mg capsule 1 tab PO BID calcium carbonate [Calcium 500] 500 mg calcium (1,250 mg) Tablet 500 mg PO BID lisinopril 5 mg tablet 5 mg PO DAILY Rx Instructions: TAKE 1 TABLET DAILY methylprednisolone [Medrol (Josep)] 4 mg tablets,dose pack 4 mg PO UD Qty: 21 0RF Rx Instructions: Take taper as directed Referrals Referrals: Jesse Ward DO [Primary Care Provider] -
--- NOTE | 2022-06-24 11:12 | XRay Report ---
XR chest 1V portable HISTORY: weakness COMPARISON: Chest 06/23/2022. FINDINGS: The lungs are clear. Cardiac silhouette is normal in size. No pleural effusions. No pneumot horax. IMPRESSION: No acute process. ACT 112: Negative or not required by law. Electronically signed by: Fabián Cee M.D. 06/24/2022 11:11 AM
--- NOTE | 2022-06-24 11:42 | History & Physical Report ---
Date of Service June 24, 2022 Assessment & Plan (1) Allergic reaction: Plan: Allergic reaction, idiopathic angioedema Leukocytosis of 12.27 Hemoglobin normal Baseline creatinine is less than 1, creatinine 06/23 was 1.4. Creatinine on admission is Tryptase is pending Eosinophils: Normal Phenobarb level 17. COVID-negative CXR: No acute process Patient is on lisinopril at baseline for CAD. DDx includes bradykinin induced, although more likely idiopathic. Given risk for exacerbating angioedema we will switch to losartan regardless CK elevated at 688, was laying on the grou for several hours yesterday. Lower suspicion for dermatomyositis - Discussed w/ Allergy. 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 Lower suspicion related to Macrobid. We will continue hydroxyzine, cetirizine, have epi on-call. Will need a epi autoinjector prior to discharge. We will see patient while admitted, appreciate recommendations Elevated troponin Without acute EKG changes, last stroke 06/22/2022 was 6.2; ER initial troponin 89.7 without clinical chest pain Patient is with drug rash, MUMTAZ, and evidence of volume depletion. Suspect demand Troponin trended Continue on telemetry CAD, history of BMS RCA 2002 No anginal/anginal equivalents recently Has had postural hypotension/lightheadedness in the past Continue aspirin 81 mg daily Lisinopril held as otherwise noted Continue metoprolol 100 mg daily MUMTAZ Baseline creatinine less than 1. Elevated to 1.40 on 06/23/2022, downtrending but not normalized on admission at 1.31 Polymyalgia/arthralgia Follows with Ortho as outpatient, has a history of left shoulder tendinopathy Has followed with pain management and doctors are in 2016, with spondylolisthesis occasionally using prednisone burstsno acute management at this time Hypertension Continue metoprolol Lisinopril held and anticipate switch to losartan Seizure disorder Continued on phenobarbital 100 mg nightly daily, patient stable on this for many years. No fever, no lymphadenopathy. Low suspicion for rheumatic drug reaction/antiepileptic Rxn. We will continue at this time Stable renal cyst, angiomyolipoma Follows with urology as outpatient with surveillance imaging No acute change at this time DVT prophylaxis: Heparin twice daily Diet: N.p.o. pending swallow eval and continued clinical improvement, sips and meds tolerated bedside swallow Disposition: Telemetry for monitoring given airway involvement prior to admission CODE STATUS: Full code (2) Pruritus: (3) MUMTAZ (acute kidney injury): (4) Chronic kidney disease: (5) Seizure disorder: (6) Presence of bare metal stent in right coronary artery: (7) Asthma: History of Present Illness Primary Care Provider: Jesse Ward DO Delilah is a 81-year-old female with a past medical history of seizure disorder, CKD, hypertension, bare-metal stenting of the right coronary artery, and asthma who presents for recurrent episodes of rash with tongue swelling. She was diagnosed with UTI on 5 days of Macrobid with the last dose last , rash developed 2 days later on Thursday and recurred. She was seen in the emergency department 06/22/2022 for itching and generalized weakness and on ER provider evaluation was found to have a diffusely pruritic red rash sparing the torso. Has had an allergic reaction in the past to vaccination. Past allergies with a rash to influenza vaccination, nickel, penicillin, vaccine Qing emotions, alendronate, and blisters to allantoin. Was on Macrobid 5 days which ended last . First developed rash Thursday evening, 3 days later. No other medication changes other than having benadryl ordered. 7 day pack of prednisone. Had hives with Prevnar, no respiratory symptoms. That improved with prednise No new creams, champoos, detergents, topics. 'No changes for years.' 'Only other thing that is different is that the bag making machine tender changed our water filter two Fridays ago. Nothing else is different.' no new foods. +nausea. Small amount of clear vomiting yesterday. [place] good after seen in ER, but as soon as she was home for a few hours got worse again. Minimal diarrhea 1 day ago. [place] [place] so tired and weak that she sat down on the carpet with quilts and 'was comfortable, but so miserable I just wanted to sleeo' and stayed there for several hours. "I can't keep coming every day and getting worse.' No chest pain, at bedside no wheezing/shortness of breath but did have tongue swelling and some difficulty breathing and was given IM epi, 125 Solu-Medrol, 50 mg IV Benadryl by EMS Did feel a lump n her throat/tongue which has improved. Patient reports her eyes were so swollen they were nearly swollen shut, this has improved and she has no vision problems at bedside exam EKG: Normal sinus rhythm, PACs, QTC 454, no territorial ST segment changes Medical History: Reviewed Medications: Reviewed Surgical History: Reviewed Allergies: Reviewed Social History: Reviewed Code Status: Full code Allergies Allergy/AdvReac Type Severity Reaction Status Date / Time influenza virus vaccine tvs Allergy Intermediate rash Verified 06/22/22 17:47 (65 yr and up) [From Fluad (65yr+)(PF)] nickel Allergy Intermediate RASH Verified 06/22/22 17:47 Penicillins Allergy Intermediate RASH Verified 06/22/22 17:47 vaccine adjuvant emulsion Allergy Intermediate rash Verified 06/22/22 17:47 MF59C.1 [From Fluad (65yr+)(PF)] emollient combination no. 46 Allergy Unknown Unknown Verified 06/22/22 17:47 [From Mederma] pneumococcal 7-valent Allergy Unknown Unknown Verified 06/22/22 17:47 conjugate to [From Prevnar] alendronate sodium AdvReac Intermediate CHEST Verified 06/22/22 17:47 DISCOMFORT AND INDIGESTION allantoin AdvReac Mild MEDERMA - Verified 06/22/22 17:47 BLISTERS Home Medications Medication Instructions Recorded Confirmed Type aspirin 81 mg tablet,delayed 81 mg PO DAILY 12/15/18 06/22/22 History release (Adult Low Dose Aspirin) multivitamin (Daily Multi-Vitamin 1 tab PO DAILY 03/24/19 06/22/22 History tablet) vit C 250 mg-vit E 90 mg-zinc 40 1 tab PO BID 03/29/19 06/22/22 History mg-copper 1 ge-dowmav-vrnkhb capsule (PreserVision AREDS-2) cholecalciferol (vitamin D3) 125 5,000 units PO DAILY 08/08/19 06/22/22 History mcg (5,000 unit) capsule colesevelam 625 mg tablet 625 mg PO DAILY #90 tabs 08/15/21 06/22/22 Rx psyllium husk 0.4 gram capsule 0.4 g PO DAILY PRN constipation 10/23/21 06/22/22 History (Metamucil) metoprolol succinate 100 mg 100 mg PO DAILY #90 tabs 01/01/22 06/22/22 Rx tablet,extended release 24 hr (Toprol XL) atorvastatin 80 mg tablet 80 mg PO DAILY #90 tabs 01/21/22 06/22/22 Rx omega 0-hzq-okd-fish oil 1,000 mg 1 cap PO BID 05/01/22 06/22/22 History (120 mg-180 mg) capsule (Fish Oil) phenobarbital 100 mg tablet 100 mg PO HS #90 tabs 05/02/22 06/22/22 Rx estradiol 0.01% (0.1 mg/gram) 1 g vaginal 3XWK #42.5 grams 06/12/22 06/22/22 Rx vaginal cream calcium carbonate 500 mg calcium 500 mg PO BID 06/22/22 06/22/22 History (1,250 mg) tablet lisinopril 5 mg tablet 5 mg PO DAILY 06/22/22 06/22/22 History methylprednisolone 4 mg tablets in 4 mg PO UD #21 ea 06/22/22 Rx a dose pack (Medrol (Josep)) 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 Asthma Blood clot associated with vein wall inflammation Chronic kidney disease Cystocele, midline Dyslipidemia Gastroesophageal reflux disease Glenohumeral arthritis Hearing loss History of allergic drug reaction History of postmenopausal bleeding Hypertension Irritable bowel syndrome Myocardial infarction Nodular thyroid disease (~06/2019) neg FNA Osteoarthritis Osteoporosis PAC (premature atrial contraction) Pessary maintenance Renal cyst, acquired (~06/2019) Seizure disorder Stroke syndrome Vitamin D deficiency Surgical History H/O colonoscopy History of endometrial biopsy History of tonsillectomy Hx of cataract surgery Hx of cholecystectomy S/P knee replacement Family History Father Patient's father is Father At Age 72 Heart disease Mother Patient's mother is Mother At Age 62 Parkinson disease Family/Other Cerebral atherosclerosis Coronary atherosclerosis Denies family history of Ovarian cancer Prostate cancer Myocardial infarction Breast cancer Colorectal cancer Social History Smoking Status: Never smoker Second Hand Exposure: No; Hx Alcohol Use: No Hx Substance Use: No Preferred Language: Chinese Communication Ability: Effective Visual Impairment: Limited Hearing Ability: Normal Label Pinker Required: No marital status: / Current Living Situation: Alone current occupational status: employed How many Children do You have: 1 Feels Safe at Home: Yes Childhood Exposure to Second-Hand Smoke: No caffeine: No Dental Care, Regularly: Yes Physical Activity Frequency: Does not Exercise Seatbelt Use: always Sunscreen Use: Yes Review of Systems Review of Systems: All systems reviewed & are unremarkable except as noted in Subjective Physical Exam Physical Exam: General: A&Ox3. NAD. Cooperative. Skin: See photos below. Erythematous, pruritic rash on chest, back, legs bilaterally, arms bilaterally, fingers. Trace residual left greater than right lip swelling, no tongue swelling, uvula midline. HEENT: Atraumatic, normocephalic. Vision/hearing intact. Pulm: CTAB A&P. -wheezes, -rales, -rhonchi. Symmetrical chest rise. No increased work of breathing. No respiratory distress. Cardiac: Regular, tachycardic, -mrg. Radial pulses intact and symmetrical. Abdominal: Nontender, nondistended, soft. BS present. Results & Data Results & Data ([facility]) Vital Signs (Past 12 Hours) Vital Signs Temp Pulse Resp BP Pulse Ox O2 Del Method 06/24/22 09:55 114 H 18 94 Room Air 06/24/22 09:12 16 94 06/24/22 09:12 Room Air 06/24/22 09:12 36.6 C 116 H 16 101/86 94 PG Care Time/CCT Total # of Minutes Spent Total Time Spent with Patient: Total time spent is greater than 50% in coordination of care (as documented) at patient's floor/unit and/or counseling patient: Coding Level of Care Code 73974 INT INP/OBS CARE 3/75MIN Diagnoses Allergic reaction T78.40XA Encounter type: initial encounter Pruritus L29.9 MUMTAZ (acute kidney injury) N17.9 Chronic kidney disease N18.9 Seizure disorder G40.909 Presence of bare metal stent in right coronary artery Z95.5 Asthma J45.909 (1) Allergic reaction Encounter type: initial encounter Qualified Code(s): T78.40XA - Allergy, unspecified, initial encounter
[2022-06-24] MEDS ORDERED: LACTATED RINGER'S 500 ML IV ONE (12:22)
[2022-06-24] MEDS ORDERED: hydrOXYzine HCl 25 MG TAB PO STA (12:22)
[2022-06-24] MEDS ORDERED: EPINEPHrine INJ 1 MG/ML AMP IM PRN (12:24)
[2022-06-24] MEDS: LACTATED RINGER'S 1,000 ML IV SCH ×2 (12:53→17:25)
--- NOTE | 2022-06-24 13:20 | Allergy & Immunology Consult ---
Date of Consultation June 24, 2022 Assessment & Plan (1) Allergic reaction: Plan Patient presents with acute urticaria and angioedema. At this point, I feel that this is unlikely to be related to Macrobid. I would expect an IgE mediated reaction to have been at the beginning of the course, and the hives typically go away very quickly once a culprit drug has been stopped. However, we can perform skin testing at a later date in our clinic to confirm that this was not the caus e. I also do not believe that this is related to lisinopril as is usually produce angioedema without any hives. However I do recommend that we continue to hold lisinopril as this could potentially exacerbate angioedema once it develops. My suspicion is point is highest for idiopathic urticaria and angioedema, and this can occur secondary to infections, organ dysfunction, as well as multiple other triggers. Extremities to be seen whether this met criteria for idiopathic anaphylaxis. I suspect that she was just dehydrated and not hypotensive relative to an allergic reaction. The main symptom would be wheezing/lung involvement and not clear whether this truly was involved. For now we will treat for the potential of this being the diagnosis and try to sort this out as an outpatient. If her tryptase comes back high, then it would help to confirm that this was anaphylaxis. At this point the main treatment will be to take the hives away and prevent it from flaring back up. I recommend that we treat her maximally and we can wean off in the outpatient setting once the hives are controlled. I recommend the following regimen: 1. Hydroxyzine 25-50 mg at bedtime (this could be used more frequently, up to ever 6 h, but has risk of sedation/fall) 2. Cetirizine 10 mg twice daily 3. Famotidine 40 mg p.o. twice daily (this is weak antihistamine effects, but in the setting of anaphylaxis with hypotension, is effective in preventing drops in blood pressure) 4. Montelukast 10 mg daily 5. Prednisone taper as follows: 60 mg daily x 3 days, 50 mg x 2 days, 40 mg x 2 days, 30 mg x 2 days, 20 mg x 2 days, 10 mg x 2 days. 6. Continue to hold the lisinopril. I will set up a follow-up visit in my clinic to see her within a week. History of Present Illness History of Present Illness This is an 81-year-old female who presents with concerns of an allergic reaction. She developed a UTI and was treated with 1 week of Macrobid that ended last . On Thursday she developed a rash that she describes as welts that was red, raised, itchy and occur diffusely.She initially presented to emergency room on 06/22 was treated with diphenhydramine, famotidine, methylprednisolone. She was discharged on Benadryl 25 mg every 8 hours as needed. She was back in the ER on 06/23 due to flareup of the rash was treated with antihistamines. While at home she developed weakness and lightheadedness in addition to recurrence of the rash.She also developed significant angioedema with swelling of the eyes, lips, face. She did receive epinephrine by EMS on the way to the emergency room in addition to 125 mg Solu- Medrol and Benadryl. This was due to shortness of breath, possibly wheezing. Allergies Allergy/AdvReac Type Severity Reaction Status Date / Time influenza virus vaccine tvs Allergy Intermediate rash Verified 06/22/22 17:47 (65 yr and up) [From Fluad (65yr+)(PF)] nickel Allergy Intermediate RASH Verified 06/22/22 17:47 Penicillins Allergy Intermediate RASH Verified 06/22/22 17:47 vaccine adjuvant emulsion Allergy Intermediate rash Verified 06/22/22 17:47 [id number] [From Fluad (65yr+)(PF)] emollient combination no. 46 Allergy Unknown Unknown Verified 06/22/22 17:47 [From Mederma] pneumococcal 7-valent Allergy Unknown Unknown Verified 06/22/22 17:47 conjugate to [From Prevnar] alendronate sodium AdvReac Intermediate CHEST Verified 06/22/22 17:47 DISCOMFORT AND INDIGESTION allantoin AdvReac Mild MEDERMA - Verified 06/22/22 17:47 BLISTERS Home Medications Medication Instructions Recorded Confirmed Type aspirin 81 mg tablet,delayed 81 mg PO DAILY 12/15/18 06/22/22 History release (Adult Low Dose Aspirin) multivitamin (Daily Multi-Vitamin 1 tab PO DAILY 03/24/19 06/22/22 History tablet) vit C 250 mg-vit E 90 mg-zinc 40 1 tab PO BID 03/29/19 06/22/22 History mg-copper 1 [id number] capsule (PreserVision AREDS-2) cholecalciferol (vitamin D3) 125 5,000 units PO DAILY 08/08/19 06/22/22 History mcg (5,000 unit) capsule colesevelam 625 mg tablet 625 mg PO DAILY #90 tabs 08/15/21 06/22/22 Rx psyllium husk 0.4 gram capsule 0.4 g PO DAILY PRN constipation 10/23/21 06/22/22 History (Metamucil) metoprolol succinate 100 mg 100 mg PO DAILY #90 tabs 01/01/22 06/22/22 Rx tablet,extended release 24 hr (Toprol XL) atorvastatin 80 mg tablet 80 mg PO DAILY #90 tabs 01/21/22 06/22/22 Rx omega 8-qyl-kuc-fish oil 1,000 mg 1 cap PO BID 05/01/22 06/22/22 History (120 mg-180 mg) capsule (Fish Oil) phenobarbital 100 mg tablet 100 mg PO HS #90 tabs 05/02/22 06/22/22 Rx estradiol 0.01% (0.1 mg/gram) 1 g vaginal 3XWK #42.5 grams 06/12/22 06/22/22 Rx vaginal cream calcium carbonate 500 mg calcium 500 mg PO BID 06/22/22 06/22/22 History (1,250 mg) tablet lisinopril 5 mg tablet 5 mg PO DAILY 06/22/22 06/22/22 History methylprednisolone 4 mg tablets in 4 mg PO UD #21 ea 06/22/22 Rx a dose pack (Medrol (Josep)) Patient History Medical History Adverse reaction to anesthetic agent Angiomyolipoma of kidney Arteriosclerotic coronary artery disease Asthma Blood clot associated with vein wall inflammation Chronic kidney disease Cystocele, midline Dyslipidemia Gastroesophageal reflux disease Glenohumeral arthritis Hearing loss History of allergic drug reaction History of postmenopausal bleeding Hypertension Irritable bowel syndrome Myocardial infarction Nodular thyroid disease (~06/2019) neg FNA Osteoarthritis Osteoporosis PAC (premature atrial contraction) Pessary maintenance Renal cyst, acquired (~06/2019) Seizure disorder Stroke syndrome Vitamin D deficiency Surgical History H/O colonoscopy History of endometrial biopsy History of tonsillectomy Hx of cataract surgery Hx of cholecystectomy S/P knee replacement Family History Father Patient's father is Father At Age 72 Heart disease Mother Patient's mother is Mother At Age 62 Parkinson disease Family/Other Cerebral atherosclerosis Coronary atherosclerosis Denies family history of Ovarian cancer Prostate cancer Myocardial infarction Breast cancer Colorectal cancer Social History Smoking Status: Never smoker Second Hand Exposure: No; Hx Alcohol Use: No Hx Substance Use: No Preferred Language: Slovak Communication Ability: Effective Visual Impairment: Limited Hearing Ability: Normal Concession Worker Required: No marital status: / Current Living Situation: Alone current occupational status: employed How many Children do You have: 1 Feels Safe at Home: Yes Childhood Exposure to Second-Hand Smoke: No caffeine: No Dental Care, Regularly: Yes Physical Activity Frequency: Does not Exercise Seatbelt Use: always Sunscreen Use: Yes Review of Systems Constitutional: no fever and no chills Eyes: as per Subjective / HPI Ear, Nose, Mouth, Throat: as per Subjective / HPI Respiratory: as per Subjective / HPI Cardiovascular: as per Subjective / HPI; no chest pain and no edema Gastrointestinal: as per Subjective / HPI; no abdominal pain Genitourinary: no dysuria Musculoskeletal: as per Subjective / HPI Integumentary: as per Subjective / HPI Neurologic: no gait abnormality, no memory loss and no problem reported Psychiatric: as per Subjective / HPI; no behavioral changes Endocrine: as per Subjective / HPI Hematologic / Lymphatic: as per Subjective / HPI; no easy bleeding Allergy / Immunological: as per Subjective / HPI Physical Exam Eyes: no conjunctival abnormality, no scleral abnormality and sclerae not anicteric ENMT: Nose: no turbinate abnormality, no nasal mucous membrane abnormality, no septum abnormality and no nasal discharge Mouth: no lip abnormality and no oropharynx abnormality Throat: no postnasal drainage Neck: trachea midline, no thyromegaly Respiratory: normal respiratory effort; no respiratory distress Auscultation: no crackles, no rhonchi and no wheezes Cardiovascular: RRR, no murmur, no edema Gastrointestinal (Abdomen): Inspection/Auscultation: abdomen normal to inspection and normal bowel sounds; abdomen not distended Musculoskeletal: Head/Neck/Chest: + head abnormal to inspection and normocephalic Skin: + rash Neurologic: awake Speech / Cognition: normal cognition Motor/Sensory: normal movement Psychiatric: A+Ox3, euthymic affect Results & Data ([facility]) Vital Signs (Past 12 Hours) Vital Signs Temp Pulse Pulse Resp BP BP Pulse Ox 06/24/22 11:12 96 H 20 96/58 L 98 06/24/22 09:55 114 H 18 94 06/24/22 09:12 16 94 06/24/22 09:12 06/24/22 09:12 36.6 C 116 H 16 101/86 94 O2 Del Method 06/24/22 11:12 Room Air 06/24/22 09:55 Room Air 06/24/22 09:12 06/24/22 09:12 Room Air 06/24/22 09:12 Coding Level of Care Code 47440 INT INP/OBS CARE 2/55MIN Diagnoses Allergic reaction T78.40XA Encounter type: initial encounter (1) Allergic reaction Encounter type: initial encounter Qualified Code(s): T78.40XA - Allergy, unspecified, initial encounter
--- NOTE | 2022-06-24 14:37 | Electrocardiogram Report ---
Test Reason : Blood Pressure : / mmHG Vent. Rate : 110 BPM Atrial Rate : 110 BPM P-R Int : 144 ms QRS Dur : 076 ms QT Int : 336 ms P-R-T Axes : 009 000 053 degrees QTc Int : 454 ms Poor data quality, interpretation may be adversely affected Sinus tachycardia with Premature atrial complexes Low voltage QRS Nonspecific ST and T wave abnormality Abnormal ECG When compared with ECG of 23-JUN-2022 14:19, Premature atrial complexes are now Present Confirmed by [place] ([id number]) on 06/24/2022 2:36:50 PM Referred By: ED Confirmed By:Steve Kinney
[2022-06-24] MEDS ORDERED: ACETAMINOPHEN 325 MG TAB PO PRN (16:23)
[2022-06-24] MEDS ORDERED: CETIRIZINE HCL 10 MG TABLET PO ONE (16:23)
[2022-06-24 17:05] LABS: Appearance Urine Turbid (Clear); Bacteria Urine Automated 2+ (Negative); Bilirubin Urine Negative (Negative); Blood Urine 1+ (Negative); Color Urine Dark Yellow; Epithelial Cell Urine Auto >30 /lpf (0-5); Glucose Urine UA Negative (Negative); Ketones Urine 1+ (Negative); Leukocyte Esterase Urine 3+ (Negative); Nitrite Urine Negative (Negative); Protein Urine 2+ (Negative); RBC Urine Automated 0-4 /hpf (0-4); Specific Gravity Urine 1.028 (1.000-1.030); Urobilinogen Urine Negative (Negative); WBC Urine Automated >30 /hpf (0-5)
[2022-06-24 17:13] LABS: Cast Urine Automated 0 /lpf (0-5)
[2022-06-24] MEDS ORDERED: Nursing to Pharmacy Communication SCH (17:15)
[2022-06-24] MEDS ORDERED: hydrOXYzine HCl 10 MG TAB PO SCH (21:00)
[2022-06-24] MEDS: HEPARIN SOD 5,000 UNIT/0.5 ML VIAL SQ SCH (21:53)
[2022-06-24] MEDS: PHENobarbitaL 30 MG TAB PO SCH (22:05)
[2022-06-25] MEDS ORDERED: LACTATED RINGER'S 500 ML IV ONE (00:18)
[2022-06-25] MEDS: LACTATED RINGER'S 1,000 ML IV SCH ×2 (01:14→11:19)
[2022-06-25] MEDS ORDERED: diphenhydrAMINE 50 MG/ML VIAL IV STA (01:30)
[2022-06-25] MEDS ORDERED: predniSONE 10 MG TABLET PO SCH (03:50)
--- NOTE | 2022-06-25 04:01 | Communication Note ---
Date of Service: June 25, 2022 At approximately 3:30 AM, was notified by nurse that patient had developed left- sided facial swelling during vital checks. Vitals were stable, wnl (RR 18, 96% RA, HR 102, BP 110/62). When observed to examine patient. She had facial swelling on the left side of her face her left eye was swollen shut. She denied any pain, difficulty with EOM, headache, dizziness, facial weakness, or SOB. She was alert and oriented, and did not sound dysarthric. CN II to were intact bilaterally and no crackles were heard on auscultation. Reviewed H&P, rig hand consult note, then decided to start patient on recommended prednisone taper (see rig hand note). Started patient on 30 mg twice daily dose of prednisone, the first of which was given immediately. Also gave as needed epinephrine in patient's chart. Instructed nursing to notify if patient's symptoms worsened. Resident Activity Tracking Resident Involvement: Health Officer Coverage Note Care Provided: Adult Hospital Medicine
[2022-06-25] MEDS ORDERED: PERFLUTREN LIPID MICROSPHERE (DEFINITY) IV ONE (07:01)
[2022-06-25] MEDS ORDERED: MONTELUKAST SODIUM 10 MG TABLET PO ONE (07:50)
[2022-06-25] MEDS: METOPROLOL SUCC 50MG EXT REL TAB PO SCH (07:53)
[2022-06-25] MEDS: ASPIRIN 81 MG ECTAB PO SCH (07:54)
[2022-06-25] MEDS: HEPARIN SOD 5,000 UNIT/0.5 ML VIAL SQ SCH ×2 (07:54→21:46)
[2022-06-25] MEDS ORDERED: predniSONE 10 MG TABLET PO STA (07:55)
--- NOTE | 2022-06-25 07:56 | Hospitalist Progress Note ---
Date of Service June 25, 2022 Assessment & Plan (1) Allergic reaction: Plan: Allergic reaction, idiopathic angioedema -- started after course macrobid given for UTI. Only other medication change/difference is her phenobarbital to 100mg as having supply issues at pharmacy w/ her prior 97.6mg dosing, unlikely culprit. Multiple ER visits w/ steroids/antihistamines and discharge and rebound right back, ultimately needing admitted for treatment WBC 12.2k, no significant eosinophilia Phenobab level normal Tryptase level pending CXR without acute process Lactic 2.3--> 1.2 Lisinopril (on at baseline for CAD), HELD for now CK was elevated to 688-- laying on ground after fall for several hours. ?low susp for dermatomyositis but not excluded (hx PMR) Patient had been tachycardic w/ low BPs overnight 06/24 -- bolus IVF ordered w/ epi x 1 and prednisone 30mg PO x 1 and had been placed on supplemental O2 but titrated to RA this afternoon Allergy/Immunology consulted * Reviewed allergy/immunology note and ordered additional 30mg predisone to make 60mg today and plan 60mg x2 more days, then decrease 50 mg x 2 days, 40 mg x 2 days, 30 mg x 2 days, 20 mg x 2 days, 10 mg x 2 days. * Started famotidine 40mg BID, montelukast 10mg (first dose now), and changed vistaril to 25mg Q8H prn from 10mg HS (asked to give dose now given itching reported) * Will need f/u allergy/immunology at d/c DISCONTINUED further IVF given edema and Cr 1.4 on 06/23 and normal on AM labs Titrated to room air Continue to hold lisinopril and anticipating switch to losartan at d/c Repeat UA w/ bacteria, but significant epi. No longer having symptoms of UTI and can hold off treatment for now. Urine culture normal lizeth (same as prior outpatient) PT/OT consulted given falls (hx PMR as well) Continued inpatient stay Polymyalgia/arthralgia Follows with Ortho as outpatient, has a history of left shoulder tendinopathy Has followed with pain management and doctors are in 2016, with spondylolisthesis occasionally using prednisone burstsno acute management at this time (2) Pruritus: Plan: famotidine added, vistaril increased steroids initiated for above monitor response (3) MUMTAZ (acute kidney injury): Plan: Cr 1.4 on admit, IVF provided Normalized on repeat Continuing to hold lisinopril (4) Presence of bare metal stent in right coronary artery: Plan: CAD, history of BMS RCA 2002 No anginal/anginal equivalents recently Has had postural hypotension/lightheadedness in the past Continue aspirin 81 mg daily Lisinopril held as otherwise noted Continue metoprolol 100 mg daily Elevated troponin Without acute EKG changes, last stroke 06/22/2022 was 6.2; ER initial troponin 89.7 without clinical chest pain and trended down on repeat. Suspect demand in setting of above ECHO w/o wall motion abnormalities, mild valvular aortic stenosis Monitoring on telemetry Hypertension BP 122/77 Continue metoprolol Lisinopril held and anticipate switch to losartan over lisinopril (5) Seizure disorder: Plan: Continued on phenobarbital 100 mg nightly daily, patient stable on this for many years. (recently to 100mg in past 6 weeks from slightly lower dose given issues w/ availability) No fever, no lymphadenopathy. Low suspicion for rheumatic drug reaction/antiepileptic Rxn. We will continue at this time Stable renal cyst, angiomyolipoma Follows with urology as outpatient with surveillance imaging No acute change at this time DVT prophylaxis: Heparin twice daily (6) Chronic kidney disease: Plan continued inpatient stay PT/OT consulted given falls at home/possible need for some rehab Admission and Anticipated Discharge Date Admission Date: June 24, 2022 Supervising Physician Co-Signing Physician Notes ROSANNA Supervision Note: I did not personally see or examine the patient today, but I verified all toney points of ROSANNA Crouch's assessment and plan with the following exceptions/additions: Increase Zyrtec to bid as per ALlergy notes plan for allergy outpt f/u Subjective eval this morning, and mandarin teacher at bedside. Patient had increased shortness of breath/swelling on her left face which has been improving since initiation of steroids as per recs by allergy/immunology. Prior had a FULL BODY rash from scalp to toes, came to ER x 2 and loaded with meds and sent home as she was feeling better but then rebounded and came back. Per allergy/immunology consult, not likely from the macrobid. Had reported prior suprapubic fullness (issues since pessary), not having those symptoms longer but monitoring repeat urine culture/treatment if needed. Discussed phenobarbital med over 6 weeks ago they didn't have her usual dose and PCP ok'd 100mg tablets. States only had allergic reaction similar to this in the past with the prevnar vaccination. Concerns about weakness/falls at home, discussed will ensure PT/OT evals prior to sending home. Review of Systems Review of Systems: All systems reviewed & are unremarkable except as noted in HPI & below Physical Exam Physical Exam: General: WD/WN female sitting up in bed, family friend and mandarin teacher at bedside, NAD HEENT/skin: head normocephalic, erythematous pruritic rash to check/face reportedly improving, slight tongue swelling without uvular deviation no stridor. no cervical lymphadenopathy Pulm: CTAB, diminished in the bases with faint expiratory wheeze, on room air CV: RRR, +systolic murmur RUSB, , edema to extremities but pulses intact/NVI GI : +BS, soft/NT MSK/Neuro: no focal deficit Results & Data Results & Data ([facility]) Vital Signs (Past 12 Hours) Vital Signs Temp Pulse Pulse Resp BP Pulse Ox O2 Del Method 06/25/22 07:18 112 H 06/25/22 06:05 95 Nasal Cannula 06/25/22 03:23 37.3 C 102 H 18 110/62 96 Room Air 06/25/22 00:39 99 H 06/24/22 22:34 36.8 C 106 H 18 93/50 L 95 Room Air 06/24/22 22:11 Room Air O2 Flow Rate 06/25/22 07:18 06/25/22 06:05 2 06/25/22 03:23 06/25/22 00:39 06/24/22 22:34 06/24/22 22:11 Laboratory Results 06/25/22 06/25/22 06/25/22 Range/Units 11:54 07:49 07:49 WBC 10.90 H (4.8-10.8) K/ul RBC 3.29 L (3.93-5.22) M/uL Hgb 10.8 L D (12.0-16.0) g/dl Hct 31.7 L (34.1-44.9) % MCV 96.4 (80.0-100.0) fL MCH 32.8 (25.0-34.0) pg MCHC 34.1 (32.0-36.0) g/dL RDW Std Deviation 46.9 H (36.4-46.3) fL RDW Coeff of Abraham 13.2 (11.5-14.5) % Plt Count 184 (130-400) K/uL MPV 11.0 (9.4-12.3) fL PT (9.0-12.0) Seconds INR (0.9-1.1) Sodium 136 (136-145) mmol/L Potassium 3.8 (3.5-5.1) mmol/L Chloride 106 (98-107) mmol/L Carbon Dioxide 21 (21-32) mmol/L Anion Gap 9 (3-11) BUN 26 H (6-23) mg/dl Creatinine 0.96 D (0.6-1.2) mg/dl Est Cr Clr Drug Dosing 46.8 ml/min Est GFR ( Amer) 63.4 ml/min Est GFR (Non-Af Amer) 54.7 ml/min BUN/Creatinine Ratio 27.1 H (10-20) Glucose 113 H (70-99(Fasting)) mg/dl Calcium 7.8 L (8.5-10.1) mg/dl Magnesium 1.6 L (1.7-2.4) mg/dl Total Bilirubin 0.5 (0.2-1.0) mg/dl AST 47 H (13-39) U/L ALT 31 (7-52) U/L Alkaline Phosphatase 59 (34-104) U/L Total Creatine Kinase 287 H (26-192) U/L Troponin I High Sens 39.0 H (0-14) pg/ml Total Protein 5.3 L (6.0-8.3) gm/dl Albumin 2.7 L (3.4-5.0) gm/dl Globulin 2.6 (2.5-4.0) gm/dl Albumin/Globulin Ratio 1.0 (0.9-2) Urine Color Urine Appearance (Clear) Urine pH (4.5-7.5) Ur Specific F[place]on (1.000-1.030) Urine Protein (Negative) Urine Glucose (UA) (Negative) Urine Ketones (Negative) Urine Blood (Negative) Urine Nitrite (Negative) Urine Bilirubin (Negative) Urine Urobilinogen (Negative) Ur Leukocyte Esterase (Negative) Urine WBC (Auto) (0-5) /hpf Urine RBC (Auto) (0-4) /hpf U Hyaline Cast (Auto) (0-5) /lpf U Epithel Cells (Auto) (0-5) /lpf Urine Bacteria (Auto) (Negative) Urine Yeast 06/25/22 06/25/22 06/24/22 Range/Units 07:49 01:10 19:58 WBC (4.8-10.8) K/ul RBC (3.93-5.22) M/uL Hgb (12.0-16.0) g/dl Hct (34.1-44.9) % MCV (80.0-100.0) fL MCH (25.0-34.0) pg MCHC (32.0-36.0) g/dL RDW Std Deviation (36.4-46.3) fL RDW Coeff of Abraham (11.5-14.5) % Plt Count (130-400) K/uL MPV (9.4-12.3) fL PT 11.3 (9.0-12.0) Seconds INR 1.1 (0.9-1.1) Sodium (136-145) mmol/L Potassium (3.5-5.1) mmol/L Chloride (98-107) mmol/L Carbon Dioxide (21-32) mmol/L Anion Gap (3-11) BUN (6-23) mg/dl Creatinine (0.6-1.2) mg/dl Est Cr Clr Drug Dosing ml/min Est GFR ( Amer) ml/min Est GFR (Non-Af Amer) ml/min BUN/Creatinine Ratio (10-20) Glucose (70-99(Fasting)) mg/dl Calcium (8.5-10.1) mg/dl Magnesium (1.7-2.4) mg/dl Total Bilirubin (0.2-1.0) mg/dl AST (13-39) U/L ALT (7-52) U/L Alkaline Phosphatase (34-104) U/L Total Creatine Kinase (26-192) U/L Troponin I High Sens 41.9 H 39.9 H D (0-14) pg/ml Total Protein (6.0-8.3) gm/dl Albumin (3.4-5.0) gm/dl Globulin (2.5-4.0) gm/dl Albumin/Globulin Ratio (0.9-2) Urine Color Urine Appearance (Clear) Urine pH (4.5-7.5) Ur Specific [place] (1.000-1.030) Urine Protein (Negative) Urine Glucose (UA) (Negative) Urine Ketones (Negative) Urine Blood (Negative) Urine Nitrite (Negative) Urine Bilirubin (Negative) Urine Urobilinogen (Negative) Ur Leukocyte Esterase (Negative) Urine WBC (Auto) (0-5) /hpf Urine RBC (Auto) (0-4) /hpf U Hyaline Cast (Auto) (0-5) /lpf U Epithel Cells (Auto) (0-5) /lpf Urine Bacteria (Auto) (Negative) Urine Yeast 06/24/22 Range/Units 16:30 WBC (4.8-10.8) K/ul RBC (3.93-5.22) M/uL Hgb (12.0-16.0) g/dl Hct (34.1-44.9) % MCV (80.0-100.0) fL MCH (25.0-34.0) pg MCHC (32.0-36.0) g/dL RDW Std Deviation (36.4-46.3) fL RDW Coeff of Abraham (11.5-14.5) % Plt Count (130-400) K/uL MPV (9.4-12.3) fL PT (9.0-12.0) Seconds INR (0.9-1.1) Sodium (136-145) mmol/L Potassium (3.5-5.1) mmol/L Chloride (98-107) mmol/L Carbon Dioxide (21-32) mmol/L Anion Gap (3-11) BUN (6-23) mg/dl Creatinine (0.6-1.2) mg/dl Est Cr Clr Drug Dosing ml/min Est GFR ( Amer) ml/min Est GFR (Non-Af Amer) ml/min BUN/Creatinine Ratio (10-20) Glucose (70-99(Fasting)) mg/dl Calcium (8.5-10.1) mg/dl Magnesium (1.7-2.4) mg/dl Total Bilirubin (0.2-1.0) mg/dl AST (13-39) U/L ALT (7-52) U/L Alkaline Phosphatase (34-104) U/L Total Creatine Kinase (26-192) U/L Troponin I High Sens (0-14) pg/ml Total Protein (6.0-8.3) gm/dl Albumin (3.4-5.0) gm/dl Globulin (2.5-4.0) gm/dl Albumin/Globulin Ratio (0.9-2) Urine Color Dark Yellow Urine Appearance Turbid A (Clear) Urine pH 5.0 (4.5-7.5) Ur Specific [place] 1.028 (1.000-1.030) Urine Protein 2+ H (Negative) Urine Glucose (UA) Negative (Negative) Urine Ketones 1+ H (Negative) Urine Blood 1+ H (Negative) Urine Nitrite Negative (Negative) Urine Bilirubin Negative (Negative) Urine Urobilinogen Negative (Negative) Ur Leukocyte Esterase 3+ H (Negative) Urine WBC (Auto) >30 H (0-5) /hpf Urine RBC (Auto) 0-4 (0-4) /hpf U Hyaline Cast (Auto) 0 (0-5) /lpf U Epithel Cells (Auto) >30 H (0-5) /lpf Urine Bacteria (Auto) 2+ H (Negative) Urine Yeast Not Reportable PG Care Time/CCT Total # of Minutes Spent Total Time Spent with Patient: Total time spent is greater than 50% in coordination of care (as documented) at patient's floor/unit and/or counseling patient: Coding Level of Care Code 39384 SUB INP/OBS CARE 3/50MIN Diagnoses Allergic reaction T78.40XA Encounter type: initial encounter Pruritus L29.9 MUMTAZ (acute kidney injury) N17.9 Presence of bare metal stent in right coronary artery Z95.5 Seizure disorder G40.909 Chronic kidney disease N18.9 (1) Allergic reaction Encounter type: initial encounter Qualified Code(s): T78.40XA - Allergy, unspecified, initial encounter
[2022-06-25] MEDS: FAMOTIDINE 40 MG TABLET PO SCH ×2 (08:25→21:45)
[2022-06-25] MEDS: hydrOXYzine HCl 25 MG TAB PO SCH ×3 (08:26→22:47)
[2022-06-25] MEDS ORDERED: CETIRIZINE HCL 10 MG TABLET PO SCH (09:00)
--- NOTE | 2022-06-25 11:20 | XCELERA ---
[id number]
[2022-06-25 11:30] LABS: Albumin Level 2.7 gm/dl (3.4-5.0); BUN Creatinine Ratio 27.1 (10-20); Bilirubin,Total 0.5 mg/dl (0.2-1.0); Calcium 7.8 mg/dl (8.5-10.1); Creatinine Clr Calc Pharmacy 46.8 ml/min; Est GFR (African American) 63.4 ml/min; Est GFR (Non-African American) 54.7 ml/min; Globulin 2.6 gm/dl (2.5-4.0); Magnesium 1.6 mg/dl (1.7-2.4); Potassium 3.8 mmol/L (3.5-5.1); Total Protein 5.3 gm/dl (6.0-8.3)
[2022-06-25 12:17] LABS: INR 1.1 (0.9-1.1); Prothrombin Time 11.3 Seconds (9.0-12.0)
[2022-06-25 13:13] LABS: Hematocrit (blood only) 31.7 % (34.1-44.9); Hemoglobin 10.8 g/dl (12.0-16.0); Mean Corpuscular Hemoglobin 32.8 pg (25.0-34.0); Mean Corpuscular Hgb Conc 34.1 g/dL (32.0-36.0); Mean Corpuscular Volume 96.4 fL (80.0-100.0); Platelet Count 184 K/uL (130-400); RDW Coefficient of Variation 13.2 % (11.5-14.5); RDW Standard Deviation 46.9 fL (36.4-46.3); Red Blood Count 3.29 M/uL (3.93-5.22)
[2022-06-25] MEDS: MAGNESIUM SULFATE / D5W 1 GM/100 ML BAG IV SCH ×2 (15:01→17:14)
[2022-06-25] MEDS: CETIRIZINE HCL 10 MG TABLET PO SCH (21:45)
[2022-06-25] MEDS: PHENobarbitaL 30 MG TAB PO SCH (21:50)
--- NOTE | 2022-06-26 07:48 | Hospitalist Progress Note ---
Date of Service June 26, 2022 Assessment & Plan (1) Allergic reaction: Plan: Allergic reaction, idiopathic angioedema -- started after course macrobid given for UTI. Only other medication change/difference is her phenobarbital to 100mg as having supply issues at pharmacy w/ her prior 97.6mg dosing, unlikely culprit. Multiple ER visits w/ steroids/antihistamines and discharge and rebound right back, ultimately needing admitted for treatment WBC 12.2k, no significant eosinophilia Phenobab level normal Tryptase level pending CXR without acute process Lactic 2.3--> 1.2 Lisinopril (on at baseline for CAD), HELD for now CK was elevated to 688-- laying on ground after fall for several hours. ?low susp for dermatomyositis but not excluded (hx PMR) Patient had been tachycardic w/ low BPs overnight 06/24 -- bolus IVF ordered w/ epi x 1 and prednisone 30mg PO x 1 and had been placed on supplemental O2 but titrated to RA this afternoon Allergy/Immunology consulted * Reviewed allergy/immunology note and ordered additional 30mg prednisone to anamaria e 60mg today and plan 60mg x2 more days, then decrease 50 mg x 2 days, 40 mg x 2 days, 30 mg x 2 days, 20 mg x 2 days, 10 mg x 2 days. * Started famotidine 40mg BID, montelukast 10mg (first dose now), and changed Vistaril to 25mg Q8H prn from 10mg HS (asked to give dose now given itching reported) * Will need f/u allergy/immunology at d/c * increased zyrtec to BID No further IVF Titrated to room air Rash improving Repeat CBC this evening given drop in hgb, no active bleeding noted ? from volume overload given repeat ER trips/IVF/bolus Lasix 20mg IV x 1, monitor response PT/OT consulted -- OT rec HH, PT w/ ambulation w/o needs However, given repeated falls/weakness at home, feel would benefit from home health therapy. CM to look into this tomorrow (2) Pruritus: Plan: famotidine added, vistaril increased steroids initiated for above improving monitor response (3) MUMTAZ (acute kidney injury): Plan: Cr 1.4 on admit, IVF provided Normalized on repeat Continuing to hold lisinopril (4) Presence of bare metal stent in right coronary artery: Plan: CAD, history of BMS RCA 2002 No anginal/anginal equivalents recently Has had postural hypotension/lightheadedness in the past Continue aspirin 81 mg daily Lisinopril held as otherwise noted Continue metoprolol 100 mg daily Elevated troponin Without acute EKG changes, last stroke 06/22/2022 was 6.2; ER initial troponin 89.7 without clinical chest pain and trended down on repeat. Suspect demand in setting of above ECHO w/o wall motion abnormalities, mild valvular aortic stenosis Monitoring on telemetry Hypertension BP 119/72 Continue metoprolol Lisinopril held and anticipate switch to losartan -- can discuss w/ Damián in follow up. BP stable off such (5) Seizure disorder: Plan: Continued on phenobarbital 100 mg nightly daily, patient stable on this for man y years. (recently to 100mg in past 6 weeks from slightly lower dose given issues w/ availability) No fever, no lymphadenopathy. Low suspicion for rheumatic drug reaction/antiepileptic Rxn. We will continue at this time Stable renal cyst, angiomyolipoma Follows with urology as outpatient with surveillance imaging No acute change at this time Polymyalgia/arthralgia Follows with Ortho as outpatient, has a history of left shoulder tendinopathy Has followed with pain management and doctors are in 2016, with spondylolisthesis occasionally using prednisone burstsno acute management at this time DVT prophylaxis: Heparin twice daily -- will hold for now (6) Chronic kidney disease: (7) Aortic stenosis: Plan: on echo, murmur appreciated on exam. had some increased edema, almost completely this morning to UE, however increased LE edema/difficultly getting her shoes on Will give 20mg PO lasix x 1, monitor response. 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 I verified all toney points and agree with ROSANNA Crouch with the following exceptions and/or additions: S-Pt anxious for discharge to home. Still with some significant peripheral edema in legs but improving in arms bilat. No SOB. Is getting stronger and able ot walk a total of 200 feet today independently with PT and go up/down stairs with 10 steps. Hgb dropped almost 5 grams since admission. Suspect hemodilutional due to fluids and fluid retention from steroids, but cannot r/o occult bleeding Recommend pt stay overnight, repeat CBC, and give IV diuretics. O- Vitals reviewed Gen: [AAOx3, NAD] HEENT: [anicteric sclerae, EOMI] Pulm: unlabored breahting Ext: [2+ edema legs to knees bilat Skin very faint residual hives Subjective eval this morning, a little bit of a traumatic event w/ roommate coding/cleaning room in the middle of the night and a delay in getting her evening medications Feeling better this morning, ambulating better with nursing staff. Has been eating/drinking, not significant appetite but tolerating oral intake. Moved her bowels x 2. No abdominal pain/nausea or bleeding reported. Occassional wheezing after coughing, no wheezing on exam but discussed prn albuterol as needed. Some itchiness but improved w/ topical cream - asked RN to remove tele stickers/adhesives. Discussed awaiting therapy evaluations and possible home w/ home health vs short term rehab if recommended. She is agreeable to wait for evals from therapy to determine final course. Low grade temp, didn't feel febrile this AM. Offered and encouraged incentive spirometer. Will need written d/c instructions w/ meds/timing at d/c as discussed as she states there are a lot of new medications. Questions/concerns addressed at this time. Review of Systems Review of Systems: All systems reviewed & are unremarkable except as noted in HPI & below Physical Exam Physical Exam: General: WD/WN female sitting up in bed, NAD, friend at bedside HEENT/skin: head normocephalic, erythematous pruritic rash to check/face IMRPOVING, tongue less swollen/almost resolvoled, no uvular deviation no stridor. no cervical lymphadenopathy Pulm: CTAB, diminished in the bases with faint expiratory wheeze, on room air CV: RRR, +systolic murmur RUSB, , trace edema to extremities but pulses intact/NVI GI : +BS, soft/NT MSK/Neuro: no focal deficit Psych: aox3 Skin: improving erythema/rash to face, primarily R cheek residual erythema, nontender Results & Data Results & Data ([facility]) Vital Signs (Past 12 Hours) Vital Signs Temp Pulse Pulse Resp BP Pulse Ox O2 Del Method 06/26/22 03:22 85 06/26/22 01:15 79 06/25/22 22:55 36.8 C 80 20 111/58 L 94 Room Air 06/25/22 23:07 Room Air PG Care Time/CCT Total # of Minutes Spent Total Time Spent with Patient: Total time spent is greater than 50% in coordination of care (as documented) at patient's floor/unit and/or counseling patient: Coding Level of Care Code 61992 SUB INP/OBS CARE 3/50MIN Diagnoses Allergic reaction T78.40XA Encounter type: initial encounter Pruritus L29.9 MUMTAZ (acute kidney injury) N17.9 Presence of bare metal stent in right coronary artery Z95.5 Seizure disorder G40.909 Chronic kidney disease N18.9 Aortic stenosis I35.0 (1) Allergic reaction Encounter type: initial encounter Qualified Code(s): T78.40XA - Allergy, unspecified, initial encounter
[2022-06-26 07:54] LABS: BUN Creatinine Ratio 26.2 (10-20); Calcium 7.6 mg/dl (8.5-10.1); Creatinine Clr Calc Pharmacy 53.3 ml/min; Est GFR (African American) 74.5 ml/min; Est GFR (Non-African American) 64.3 ml/min; Potassium 3.6 mmol/L (3.5-5.1)
[2022-06-26] MEDS: predniSONE 20 MG TAB PO SCH (08:07)
[2022-06-26] MEDS: ASPIRIN 81 MG ECTAB PO SCH (08:07)
[2022-06-26] MEDS: METOPROLOL SUCC 50MG EXT REL TAB PO SCH (08:07)
[2022-06-26] MEDS: CETIRIZINE HCL 10 MG TABLET PO SCH ×2 (08:07→19:58)
[2022-06-26] MEDS: hydrOXYzine HCl 25 MG TAB PO SCH ×3 (08:07→23:11)
[2022-06-26] MEDS: HEPARIN SOD 5,000 UNIT/0.5 ML VIAL SQ SCH (08:08)
[2022-06-26] MEDS: FAMOTIDINE 40 MG TABLET PO SCH ×2 (08:08→19:57)
--- NOTE | 2022-06-26 08:20 | Allergy & Immunology Prog Note ---
Date of Service June 26, 2022 Assessment & Plan (1) Rash: Plan: her hives are doing better today. I recommend we continue current treatment. If the hives not flare up she should be able to go home on this regimen with close follow-up our clinic. From my standpoint it should be safe to send her out either today or tomorrow. It looks as though she may have developed a contact allergy to adhesives. He has diffuse where erythematous, scaly patches where monitor leads were contact the skin. I will see her in the next week for follow-up I will have my office schedule this. Admission and Anticipated Discharge Date Admission Date: June 24, 2022 Subjective She did well yesterday without any significant flareups. She did not have any more episodes of shortness of breath. The hives are much better, though they are still present. No significant hives overnight, but she did not sleep well. Roommate had some problems people were in and out all night.She did not have a significant flare up with the hives, however. She feels as though the new medication regimen Review of Systems Constitutional: as per Subjective / HPI Eyes: as per Subjective / HPI Ear, Nose, Mouth, Throat: as per Subjective / HPI Respiratory: as per Subjective / HPI Cardiovascular: as per Subjective / HPI Gastrointestinal: as per Subjective / HPI Genitourinary: as per Subjective / HPI Musculoskeletal: as per Subjective / HPI Integumentary: as per Subjective / HPI Neurologic: as per Subjective / HPI Psychiatric: as per Subjective / HPI Endocrine: as per Subjective / HPI Hematologic / Lymphatic: as per Subjective / HPI Allergy / Immunological: as per Subjective / HPI Physical Exam Constitutional: WD/WN, vitals as above Eyes: no conjunctival abnormality and sclerae not anicteric ENMT: external ear and nose normal, oropharynx normal Neck: trachea midline Respiratory: normal respiratory effort and able to speak in complete sentences; does not use accessory muscles Musculoskeletal: Head/Neck/Chest: head atraumatic Gait: normal gait Skin: + rash; no lesions Psychiatric: A+Ox3, euthymic affect Results & Data ([facility]) Vital Signs (Past 12 Hours) Vital Signs Temp Pulse Pulse Resp BP Pulse Ox O2 Del Method 06/26/22 08:02 37.8 C H 90 18 109/68 94 Room Air 06/26/22 07:55 Room Air 06/26/22 08:01 37.1 C 06/26/22 03:22 85 06/26/22 01:15 79 06/25/22 22:55 36.8 C 80 20 111/58 L 94 Room Air 06/25/22 23:07 Room Air PG Care Time/CCT Total # of Minutes Spent Total Time Spent with Patient: Total time spent is greater than 50% in coordination of care (as documented) at patient's floor/unit and/or counseling patient: Coding Level of Care Code 61803 SUB INP/OBS CARE 06/25MIN Diagnoses Rash R21
[2022-06-26 09:27] LABS: Hematocrit (blood only) 28.7 % (37.0-47.0); Hemoglobin 9.7 g/dl (12.0-16.0); Mean Corpuscular Hemoglobin 32.4 pg (25.0-34.0); Mean Corpuscular Hgb Conc 33.8 g/dL (32.0-36.0); Mean Platelet Volume 10.8 fL (9.4-12.4); Platelet Count 179 K/uL (130-400); RDW Coefficient of Variation 13.3 % (11.5-14.5); RDW Standard Deviation 47.4 fL (36.4-46.3); Red Blood Count 2.99 M/uL (4.20-5.40); White Blood Count 8.63 K/ul (4.8-10.8)
--- NOTE | 2022-06-26 10:45 | XRay Report ---
XR chest 1V portable CLINICAL HISTORY: low grade temp, eval atelectasis TECHNIQUE: Single frontal radiograph of the chest was obtained. Comparison: Comparison is made to chest radiograph 06/24/2022 FINDINGS: No lines and tubes are seen. The cardiomediastinal silhouette is normal. The lungs are clear. No evid ence of pleural effusion or pneumothorax. IMPRESSION: No acute chest disease. ACT 112: Negative or not required by law. Electronically signed by: Chacorta Kennedy M.D. 06/26/2022 10:44 AM
[2022-06-26 12:05] LABS: Ferritin 478.7 ng/ml (8-388)
[2022-06-26 12:07] LABS: Vitamin B12 404 pg/ml (180-914)
[2022-06-26] MEDS: ALBUTEROL HFA 8 GM INHALER INH PRN (15:53)
--- NOTE | 2022-06-26 16:22 | Discharge Summary ---
Date of Service June 26, 2022 Admission HPI Per Admitting Provider Delilah is a 81-year-old female with a past medical history of seizure disorder, CKD, hypertension, bare-metal stenting of the right coronary artery, and asthma who presents for recurrent episodes of rash with tongue swelling. She was diagnosed with UTI on 5 days of Macrobid with the last dose last , rash developed 2 days later on Thursday and recurred. She was seen in the emergency department 06/22/2022 for itching and generalized weakness and on ER provider evaluation was found to have a diffusely pruritic red rash sparing the torso. Has had an allergic reaction in the past to vaccination. Past allergies with a rash to influenza vaccination, nickel, penicillin, vaccine Qing emotions, alendronate, and blisters to allantoin. Was on Macrobid 5 days which ended last . First developed rash Thursday evening, 3 days later. No other medication changes other than having benadryl ordered. 7 day pack of prednisone. Had hives with Prevnar, no respiratory symptoms. That improved with prednise No new creams, champoos, detergents, topics. 'No changes for years.' 'Only other thing that is different is that the plumber apprentice changed our water filter two Fridays ago. Nothing else is different.' no new foods. +nausea. Small amount of clear vomiting yesterday. [place] good after seen in ER, but as soon as she was home for a few hours got worse again. Minimal diarrhea 1 day ago. [place] so tired and weak that she sat down on the carpet with quilts and 'was comfortable, but so miserable I just wanted to sleeo' and stayed there for several hours. "I can't keep coming every day and getting worse.' No chest pain, at bedside no wheezing/shortness of breath but did have tongue swelling and some difficulty breathing and was given IM epi, 125 Solu-Medrol, 50 mg IV Benadryl by EMS Did feel a lump n her throat/tongue which has improved. Patient reports her eyes were so swollen they were nearly swollen shut, this has improved and she has no vision problems at bedside exam EKG: Normal sinus rhythm, PACs, QTC 454, no territorial ST segment changes Medical History: Reviewed Medications: Reviewed Surgical History: Reviewed Allergies: Reviewed Social History: Reviewed Code Status: Full code Discharge Exam General: WD/WN female sitting up in bed, NAD, friend at bedside HEENT/skin: head normocephalic, erythematous pruritic rash to check/face IMRPOVING, tongue less swollen/almost resolvoled, no uvular deviation no stridor. no cervical lymphadenopathy Pulm: CTAB, diminished in the bases with faint expiratory wheeze, on room air CV: RRR, +systolic murmur RUSB, , trace edema to extremities but pulses intact/NVI GI : +BS, soft/NT MSK/Neuro: no focal deficit Psych: aox3 Skin: improving erythema/rash to face, primarily R cheek residual erythema, nontender Discharge Data Allergies Allergy/AdvReac Type Severity Reaction Status Date / Time influenza virus vaccine tvs Allergy Intermediate rash Verified 06/22/22 17:47 (65 yr and up) [From Fluad (65yr+)(PF)] nickel Allergy Intermediate RASH Verified 06/22/22 17:47 Penicillins Allergy Intermediate RASH Verified 06/22/22 17:47 vaccine adjuvant emulsion Allergy Intermediate rash Verified 06/22/22 17:47 [id number] [From Fluad (65yr+)(PF)] emollient combination no. 46 Allergy Unknown Unknown Verified 06/22/22 17:47 [From Mederma] pneumococcal 7-valent Allergy Unknown Unknown Verified 06/22/22 17:47 conjugate to [From Prevnar] alendronate sodium AdvReac Intermediate CHEST Verified 06/22/22 17:47 DISCOMFORT AND INDIGESTION allantoin AdvReac Mild MEDERMA - Verified 06/22/22 17:47 BLISTERS Consultations 06/24/22 11:05 ED Decision to Admit Stat 06/24/22 12:25 Consult Allergy / Immunology Routine Ordered Studies Chest X-Ray 06/24/22 09:55 XR chest 1V portable HISTORY: weakness COMPARISON: Chest 06/23/2022. FINDINGS: The lungs are clear. Cardiac silhouette is normal in size. No pleural effusions. No pneumothorax. IMPRESSION: No acute process. ACT 112: Negative or not required by law. Electronically signed by: Fabián Cee M.D. 06/24/2022 11:11 AM 06/25/22 [address]CH[address]IO[address] LV systolic function is normal. LV wall motion is normal. Mild valvular aortic stenosis. RVSP elevated at 40-50mmhg Chest X-Ray 06/26/22 10:10 XR chest 1V portable CLINICAL HISTORY: low grade temp, eval atelectasis TECHNIQUE: Single frontal radiograph of the chest was obtained. Comparison: Comparison is made to chest radiograph 06/24/2022 FINDINGS: No lines and tubes are seen. The cardiomediastinal silhouette is normal. The lungs are clear. No evidence of pleural effusion or pneumothorax. IMPRESSION: No acute chest disease. ACT 112: Negative or not required by law. Electronically signed by: Chacorta Kennedy M.D. 06/26/2022 10:44 AM Hospital Course (1) Allergic reaction: Allergic reaction, idiopathic angioedema -- started after course macrobid given for UTI. Only other medication change/difference is her phenobarbital to 100mg as having supply issues at pharmacy w/ her prior 97.6mg dosing, unlikely culprit. Multiple ER visits w/ steroids/antihistamines and discharge and rebound right back, ultimately needing admitted for treatment WBC 12.2k, no significant eosinophilia Phenobab level normal Tryptase level pending CXR without acute process Lactic 2.3--> 1.2 Lisinopril (on at baseline for CAD), HELD for now CK was elevated to 688-- laying on ground after fall for several hours. ?low susp for dermatomyositis but not excluded (hx PMR) Patient had been tachycardic w/ low BPs overnight 06/24 -- bolus IVF ordered w/ epi x 1 and prednisone 30mg PO x 1 and had been placed on supplemental O2 but titrated to RA this afternoon Allergy/Immunology consulted * Reviewed allergy/immunology note and ordered additional 30mg predisone to make 60mg today and plan 60mg x2 more days, then decrease 50 mg x 2 days, 40 mg x 2 days, 30 mg x 2 days, 20 mg x 2 days, 10 mg x 2 days. * Started famotidine 40mg BID, montelukast 10mg (first dose now), and changed vistaril to 25mg Q8H prn from 10mg HS (asked to give dose now given itching reported) * Will need f/u allergy/immunology at d/c * increased zyrtec to BID DISCONTINUED further IVF given edema and Cr 1.4 on 06/23 and normal on AM labs Titrated to room air Continue to hold lisinopril and anticipating switch to losartan at d/c Repeat UA w/ bacteria, but significant epi. No longer having symptoms of UTI and can hold off treatment for now. Urine culture normal lizeth (same as prior outpatient) PT/OT consulted given falls (hx PMR as well) Continued inpatient stay Polymyalgia/arthralgia Follows with Ortho as outpatient, has a history of left shoulder tendinopathy Has followed with pain management and doctors are in 2016, with spondylolisthesis occasionally using prednisone burstsno acute management at this time (2) Pruritus: famotidine added, vistaril increased steroids initiated for above monitor response (3) MUMTAZ (acute kidney injury): Cr 1.4 on admit, IVF provided Normalized on repeat Continuing to hold lisinopril (4) Presence of bare metal stent in right coronary artery: CAD, history of BMS RCA 2002 No anginal/anginal equivalents recently Has had postural hypotension/lightheadedness in the past Continue aspirin 81 mg daily Lisinopril held as otherwise noted Continue metoprolol 100 mg daily Elevated troponin Without acute EKG changes, last stroke 06/22/2022 was 6.2; ER initial troponin 89.7 without clinical chest pain and trended down on repeat. Suspect demand in setting of above ECHO w/o wall motion abnormalities, mild valvular aortic stenosis Monitoring on telemetry Hypertension BP 122/77 Continue metoprolol Lisinopril held and anticipate switch to losartan over lisinopril (5) Seizure disorder: Continued on phenobarbital 100 mg nightly daily, patient stable on this for many years. (recently to 100mg in past 6 weeks from slightly lower dose given issues w/ availability) No fever, no lymphadenopathy. Low suspicion for rheumatic drug reaction/antiepileptic Rxn. We will continue at this time Stable renal cyst, angiomyolipoma Follows with urology as outpatient with surveillance imaging No acute change at this time DVT prophylaxis: Heparin twice daily (6) Chronic kidney disease: (7) Aortic stenosis: on echo, murmur appreciated on exam. had some increased edema, almost completely resolved since IVF discontinued F/u her primary waredresser, Dr Steel at discharge Plan continued inpatient stay PT/OT consulted given falls at home/possible need for some rehab Discharge Plan Discharge Items Patient Disposition: Home - Self-Care Reason For Visit: ANGIOEDEMA, ELEVATED TROP Discharge Diagnosis: Allergic Reaction Goals: You have been hospitalized for an acute medical problem. During your stay at [facility], we have made an effort to correct the problem that brought you to the hospital while keeping you as comfortable as possible. Medications were used to bring your condition under control and your discharge instructions will include directions for any medications you should take after leaving the hospital. Please make sure you see your Primary Care Provider as part of your follow up plan. Activity: As commented below Activity Comment: use walker and/or cane with ambulation Non-emergency contact: Primary Care Provider, Specialist and Power Transformer Repairer Call non-emergency contact if: you have any medication questions, your symptoms worsen and you have a fever Follow-up/Referrals: Landy Pittman PA-C [Physician District Representative] - 07/03/22 2:30 pm (Allergy/Immunology hospital follow up Please arrive 15 minutes prior to appointment time.) Chadd Steel Jr, MD, FACC [Physician] - (2-4 weeks) Jesse Ward DO [Primary Care Provider] - 07/04/22 2:45 pm Diet: Heart Healthy Addtl Attending Provider Instructions: You have been hospitalized for an allergic reaction/angioedema. We have consulted allergy/immunology, and recommendations for treatment with steroids/antihistamines as follows: * Prednisone 60mg by mouth tomorrow, then decrease to 50mg for two days, then decrease to 40mg x 2 days, then 20mg x 2 days, then 10mg x 2 days * Cetirizine 10mg by mouth twice daily (allergy medication) * Famotidine (pepcid) -- also works peripherally as an antihistamine * Montelukast (singular) - 10mg daily * Hydroxyzine 25mg as needed every 8 hours for itching We have also sent epi pen in case of any allergic reactions in the future to use and report to ER RAZA. Albuterol inhaler -- 1-2 puffs every 4 hours as needed for shortness of breath/wheezing. You will have follow up with Dr Magana's office after discharge to allergy testing, and this will confirm or not whether this is from the macrobid or possibly something else. It may also be worth discussing follow up with pulmonology for pulmonary function testing to see if you don't have an underlying element of asthma. We have stopped your lisinopril as well, and your blood pressures have been quite well controlled off this medication. We recommend you continue to STOP this medication at discharge. If blood pressures are elevated in follow up appointment or at home, they may consider starting something like losartan, that has less risk for issues, however this was not suspected to be the culprit. We have had therapy evaluate you and case management is looking at the cost for private pay therapy at home as physical therapy evaluation in the hospital indicated you were stable for discharge home. They will follow up with you tomorrow. Please follow up with your primary care in the next 7-10 days to monitor your progress after discharge. Please return if any increased rash/swelling, difficulty breathing, chest pain, increased weakness, or for any other symptoms you may be having. It has been a pleasure being a part of the medical team providing for you while you have been in the hospital. Take care! Pending Studies at Discharge: Yes Studies:: tryptase Stand-Alone Forms: My [facility] [employer], Smoking Cessation Medications and DC Order Prescriptions: New cetirizine 10 mg Tablet 10 mg PO BID Qty: 60 0RF albuterol sulfate [Ventolin HFA] 90 mcg/actuation Hfa Aerosol Inhaler 2 puff inhalation Q4H PRN (Reason: shortness of breath or wheezing) Qty: 6.7 0RF famotidine 40 mg Tablet 40 mg PO BID Qty: 60 0RF montelukast [Singulair] 10 mg Tablet 10 mg PO HS Qty: 30 0RF hydroxyzine HCl 25 mg Tablet 25 mg PO Q8H PRN (Reason: itching) Qty: 60 0RF prednisone 20 mg tablet See Rx Instructions .ROUTE .COMPLEX Qty: 18 0RF Rx Instructions: please take 60mg x 1 day, then decrease to 50mg x 2 days, then 40mg x 2 days, then 20mg x 2 days, then 10mg x 2 days then stop EpinephrineSnap-V 1 mg/mL kit 0.5 mg IM Q4H PRN (Reason: anaphylaxis) Qty: 1 0RF Continued colesevelam 625 mg tablet 625 mg PO DAILY Qty: 90 3RF metoprolol succinate [Toprol XL] 100 mg tablet extended release 24 hr 100 mg PO DAILY Qty: 90 3RF atorvastatin 80 mg tablet 80 mg PO DAILY Qty: 90 3RF phenobarbital 100 mg tablet 100 mg PO HS Qty: 90 1RF estradiol 0.01 % (0.1 mg/gram) cream 1 g vaginal 3XWK Qty: 42.5 4RF multivitamin [Daily Multi-Vitamin] tablet 1 tab PO DAILY aspirin [Adult Low Dose Aspirin] 81 mg tablet,delayed release (DR/EC) 81 mg PO DAILY psyllium husk [Metamucil] 0.4 gram capsule 0.4 g PO DAILY PRN (Reason: constipation) omega 3-pfb-rvi-fish oil [Fish Oil] 1,000 mg (120 mg-180 mg) capsule 1 cap PO BID cholecalciferol (vitamin D3) 125 mcg (5,000 unit) capsule 5,000 units PO DAILY PreserVision AREDS-2 [id number] bi-hcpx-fi-mg capsule 1 tab PO BID calcium carbonate 500 mg calcium (1,250 mg) Tablet 500 mg PO BID Discontinued lisinopril 5 mg tablet 5 mg PO DAILY methylprednisolone [Medrol (Josep)] 4 mg tablets,dose pack 4 mg PO UD Qty: 21 0RF Rx Instructions: BEGIN 06/22/22 : Take taper- down dose as directed until gone Discharge Orders: Discharge Order (Routine); Ordered 06/26/22 Ordered By: Cee Crouch Admission Data Admit Date/Time: 06/24/22 11:49 Attending Provider: Lizet Choi Admit Provider: Regulo Amaro Primary Care Provider: Jesse Ward Other Providers: Regulo Amaro ; Dayday Magana Coding Diagnoses Allergic reaction T78.40XA Encounter type: initial encounter Pruritus L29.9 MUMTAZ (acute kidney injury) N17.9 Presence of bare metal stent in right coronary artery Z95.5 Seizure disorder G40.909 Chronic kidney disease N18.9 Aortic stenosis I35.0
[2022-06-26] MEDS ORDERED: POTASSIUM CHLORIDE CRTAB 20 MEQ TABCR PO STA (17:01)
[2022-06-26] MEDS ORDERED: FUROSEMIDE 20 MG TAB PO ONE (17:02)
[2022-06-26] MEDS ORDERED: FUROSEMIDE INJ 20 MG/2 ML VIAL IV ONE (17:06)
[2022-06-26 17:18] LABS: Hematocrit (blood only) 31.5 % (37.0-47.0); Hemoglobin 10.8 g/dl (12.0-16.0); Mean Corpuscular Hemoglobin 32.4 pg (25.0-34.0); Mean Corpuscular Hgb Conc 34.3 g/dL (32.0-36.0); Mean Corpuscular Volume 94.6 fL (80.0-100.0); Mean Platelet Volume 10.7 fL (9.4-12.4); Platelet Count 220 K/uL (130-400); RDW Coefficient of Variation 13.2 % (11.5-14.5); RDW Standard Deviation 45.7 fL (36.4-46.3); Red Blood Count 3.33 M/uL (4.20-5.40); White Blood Count 8.38 K/ul (4.8-10.8)
[2022-06-26] MEDS: MONTELUKAST SODIUM 10 MG TABLET PO SCH (19:57)
[2022-06-26] MEDS: PHENobarbitaL 30 MG TAB PO SCH (20:01)
[2022-06-27 07:13] LABS: Basophils # (auto) 0.02 K/uL (0-0.2); Basophils % (auto) 0.4 %; Eosinophils # (auto) 0.17 K/uL (0-0.50); Eosinophils % (auto) 3.1 %; Hematocrit (blood only) 28.1 % (37.0-47.0); Hemoglobin 9.5 g/dl (12.0-16.0); Immature Granulocytes # (auto) 0.07 K/uL (0.01-0.20); Immature Granulocytes % (auto) 1.3 %; Lymphocytes # (auto) 1.91 K/uL (1.2-3.4); Lymphocytes % (auto) 35.2 %; Mean Corpuscular Hemoglobin 32.4 pg (25.0-34.0); Mean Corpuscular Hgb Conc 33.8 g/dL (32.0-36.0); Mean Corpuscular Volume 95.9 fL (80.0-100.0); Mean Platelet Volume 10.7 fL (9.4-12.4); Monocytes % (auto) 9.2 %; Neutrophils # (auto) 2.76 K/uL (1.40-6.50); Neutrophils % (auto) 50.8 %; Platelet Count 169 K/uL (130-400); RDW Coefficient of Variation 13.3 % (11.5-14.5); RDW Standard Deviation 47.3 fL (36.4-46.3); Red Blood Count 2.93 M/uL (4.20-5.40); White Blood Count 5.43 K/ul (4.8-10.8)
--- NOTE | 2022-06-27 07:31 | Hospitalist Progress Note ---
Date of Service June 27, 2022 Assessment & Plan (1) Allergic reaction: Plan: Allergic reaction, idiopathic angioedema -- started after course macrobid given for UTI. Only other medication change/difference is her phenobarbital to 100mg as having supply issues at pharmacy w/ her prior 97.6mg dosing, unlikely culprit. Multiple ER visits w/ steroids/antihistamines and discharge and rebound right back, ultimately needing admitted for treatment WBC 12.2k on admit, no significant eosinophilia (prior elevations, being monitored by her doctor reported) Phenobab level normal Tryptase level pending CXR without acute process Lactic 2.3--> 1.2 Lisinopril (on at baseline for CAD), HELD for now CK was elevated to 688-- laying on ground after fall for several hours. ?low susp for dermatomyositis but not excluded (hx PMR, however doesn't appear to actually have this diagnosis) Normalized on repeat Patient had been tachycardic w/ low BPs overnight 06/24- bolus IVF ordered w/ epi x 1 and prednisone 30mg PO x 1 and had been placed on supplemental O2 but titrated to RA this afternoon Allergy/Immunology consulted * Reviewed allergy/immunology note and ordered additional 30mg prednisone to make 60mg today and plan 60mg x2 days, then decrease 50 mg x 2 days (for AM 06/28), 40 mg x 2 days, 30 mg x 2 days, 20 mg x 2 days, 10 mg x 2 days. * Started famotidine 40mg BID, montelukast 10mg (first dose now), and changed Vistaril to 25mg Q8H prn from 10mg HS (asked to give dose now given itching reported), continue zyrtec BID * Will need f/u allergy/immunology at d/c - already arranged Rash almost completely resolved IVF discontinued 06/25, had given dose of lasix 20mg IV x 1 06/26 for LE edema, repeat 20mg IV dose this afternoon (given initially 20mg PO this morning) and still with decent amount of edema Check Venous Doppler to r/o DVT Will need to monitor overnight, but possible need for continued low dose lasix w/ steroid use given her underlying PT/OT rec home, CM did help to arrange home health/pt/ot, if dc over weekend they will start Thursday given prior falls at home to work on strength/conditioning (2) Pruritus: Plan: famotidine added, vistaril increased and continued steroids as above improved, but had some itching this morning improving w/ vistaril (was going to decrease given her reports of fatigue) (3) MUMTAZ (acute kidney injury): Plan: Cr 1.4 on 06/23 in ER, 0.96 on admit IVF provided, additional IVF bolus for hypotension/tachycardia as above but suspect from the epi given Cr stable on repeat No further lisinopril at d/c given above (4) Presence of bare metal stent in right coronary artery: Plan: CAD, history of BMS RCA 2002 No anginal/anginal equivalents recently Has had postural hypotension/lightheadedness in the past Continue aspirin 81 mg daily Lisinopril held as otherwise noted-- d/c at discharge, planning for losartan, will start now given elevated BP Continue metoprolol 100 mg daily Elevated troponin Without acute EKG changes, last stroke 06/22/2022 was 6.2; ER initial troponin 89.7 without clinical chest pain and trended down on repeat. Suspect demand in setting of above -- repeat today w/o elevation ECHO w/o wall motion abnormalities, mild valvular aortic stenosis Monitoring on telemetry Hypertension BP elevated, ?2nd to steroids 158/90 Continue metoprolol, lisinopril d/c as above, will start losartan 25mg daily now given elevated BP Continued discussions in f/u with Dr Steel at d/c (5) Seizure disorder: Plan: Continued on phenobarbital 100 mg nightly daily, patient stable on this for many years. (recently to 100mg in past 6 weeks from slightly lower dose given issues w/ availability) No fever, no lymphadenopathy. Low suspicion for rheumatic drug reaction/antiepileptic Rxn. ?if any issues w/ our medication while inpatient to be considered given different than at home? no increased rash did message allergy/immunology for concerns, did not feel DRESS related We will continue at this time Stable renal cyst, angiomyolipoma Follows with urology as outpatient with surveillance imaging No acute change at this time Polymyalgia/arthralgia Follows with Ortho as outpatient, has a history of left shoulder tendinopathy Has followed with pain management and doctors are in 2016, with spondylolisthesis occasionally using prednisone burstsno acute management at this time Appears DOES NOT have hx PMR as outlined on admit DVT prophylaxis: Heparin twice daily -- held given drop in hgb, however checking venous doppler given LE edema, slightly worse on the left to ensure no DVT given repeated falls (6) Chronic kidney disease: (7) Aortic stenosis: Plan: on echo, murmur appreciated on exam. had some increased edema, almost completely this morning to UE, however increased LE edema/difficultly getting her shoes on Will give 20mg PO lasix x 1, monitor response. F/u primary cap sizer, Dr Steel at discharge (8) Diarrhea: Plan: checking cdiff given report foul smelling stool this am/hospitalization cdiff gene positive but toxin NEGATIVE monitor for further issues Plan continued inpatient stay Admission and Anticipated Discharge Date Admission Date: June 26, 2022 Supervising Physician Co-Signing Physician Notes The patient was not seen by me. Chart was reviewed. Case discussed with ROSANNA Boogie. Agree with assessment and plan Subjective eval this morning, was feeling better last night but discouraged about staying. thought she felt better this morning but feeling a little whipped out currently. Discussed LE edema about the same this morning and additional Lasix to be ordered. Discussed prn lasix at home and patient feels more comfortable staying overnight as discussed to monitor response to diuretics and plan for d/c tomorrow. CM arranged for home health, PT/OT to begin tomorrow. This will need to be altered. She does note an occasional cough, no sputum production. She did have an episode of loose/foul smelling stool this morning, no blood noted but she denied having looked. No abdominal pain but chronic discomforts, nontender on exam. Review of Systems Review of Systems: All systems reviewed & are unremarkable except as noted in HPI & below Physical Exam Physical Exam: General: WD/WN female laying in bed, NAD but reporting feeling whiped out Head/skin normocephalic, atraumatic, rash much improved to face, almost completely resolved, nontender. chest almost resolved from prior stickers resp - diminished in the bases, no w/c/r, on room air cv- regular rate/ryhtym, +sysolic murmur, 1-2+ LE edema, calves nontender to palpation, non erythematous, LE slightly more edematous than RLE GI- +BS, soft/NT MSK/Neuro: no focal deficit psych- aox3, pleasant and cooperative Results & Data Results & Data ([facility]) Vital Signs (Past 12 Hours) Vital Signs Temp Pulse Resp BP Pulse Ox O2 Del Method 06/26/22 22:59 36.5 C 72 18 111/68 95 Room Air Laboratory Results 06/27/22 06/27/22 06/27/22 Range/Units 14:50 14:48 11:35 WBC (4.8-10.8) K/ul RBC (4.20-5.40) M/uL Hgb (12.0-16.0) g/dl Hct (37.0-47.0) % MCV (80.0-100.0) fL MCH (25.0-34.0) pg MCHC (32.0-36.0) g/dL RDW Std Deviation (36.4-46.3) fL RDW Coeff of Abraham (11.5-14.5) % Plt Count (130-400) K/uL MPV (9.4-12.4) fL Immature Gran % (Auto) % Neut % (Auto) % Lymph % (Auto) % [place] % (Auto) % Eos % (Auto) % Baso % (Auto) % Neut # (Auto) (1.40-6.50) K/uL Lymph # (Auto) (1.2-3.4) K/uL [place] # (Auto) (0.11-0.59) K/uL Eos # (Auto) (0-0.50) K/uL Baso # (Auto) (0-0.2) K/uL Immature Gran # (Auto) (0.01-0.20) K/uL Sodium 139 (136-145) mmol/L Potassium 4.3 (3.5-5.1) mmol/L Chloride 104 (98-107) mmol/L Carbon Dioxide 27 (21-32) mmol/L Anion Gap 8 (3-11) BUN 23 (6-23) mg/dl Creatinine 0.99 (0.6-1.2) mg/dl Est Cr Clr Drug Dosing 44.9 ml/min Est GFR ( Amer) 61.1 ml/min Est GFR (Non-Af Amer) 52.7 ml/min BUN/Creatinine Ratio 23.2 H (10-20) Glucose 148 H (70-99(Fasting)) mg/dl Calcium 8.5 (8.5-10.1) mg/dl Magnesium (1.7-2.4) mg/dl Troponin I High Sens 18.0 H (0-14) pg/ml Stl C. cayetanensis PCR Not Detected (NotDetected) Stool Rotavirus A PCR Not Detected (NotDetected) Stl Adenov F 40/41 PCR Not Detected (NotDetected) Stool Astrovirus (PCR) Not Detected (NotDetected) Stool Campylobacter PCR Not Detected (NotDetected) Stl C. diff Tox B Gene (Neg) Stl C.difficile Tox A&B (Negative) Stool Cryptosporidium PCR Not Detected (NotDetected) Stl E.coli Shiga Tox PCR Not Detected (NotDetected) Stl Enterotoxigenic E PCR Not Detected (NotDetected) Stool EPEC (PCR) Not Detected (NotDetected) Stool EAEC (PCR) Not Detected (NotDetected) Stl E. histolytica PCR Not Detected (NotDetected) Stool Giardia Lamblia PCR Not Detected (NotDetected) Stool Salmonella PCR Not Detected (NotDetected) Stool Sapovirus (PCR) Not Detected (NotDetected) Stl P. shigelloides PCR Not Detected (NotDetected) Stl Shigella/EIEC PCR Not Detected (NotDetected) St Y.enterocolitica PCR Not Detected (NotDetected) Stool Vibrio (PCR) Not Detected (NotDetected) Stl Vibrio cholerae PCR Not Detected (NotDetected) Stl Norovirus GI/GII PCR Not Detected (NotDetected) 06/27/22 06/27/22 06/27/22 Range/Units 11:35 06:54 06:54 WBC 5.43 (4.8-10.8) K/ul RBC 2.93 L (4.20-5.40) M/uL Hgb 9.5 L (12.0-16.0) g/dl Hct 28.1 L (37.0-47.0) % MCV 95.9 (80.0-100.0) fL MCH 32.4 (25.0-34.0) pg MCHC 33.8 (32.0-36.0) g/dL RDW Std Deviation 47.3 H (36.4-46.3) fL RDW Coeff of Abraham 13.3 (11.5-14.5) % Plt Count 169 (130-400) K/uL MPV 10.7 (9.4-12.4) fL Immature Gran % (Auto) 1.3 % Neut % (Auto) 50.8 % Lymph % (Auto) 35.2 % [place] % (Auto) 9.2 % Eos % (Auto) 3.1 % Baso % (Auto) 0.4 % Neut # (Auto) 2.76 (1.40-6.50) K/uL Lymph # (Auto) 1.91 (1.2-3.4) K/uL [place] # (Auto) 0.50 (0.11-0.59) K/uL Eos # (Auto) 0.17 (0-0.50) K/uL Baso # (Auto) 0.02 (0-0.2) K/uL Immature Gran # (Auto) 0.07 (0.01-0.20) K/uL Sodium 141 (136-145) mmol/L Potassium 3.7 (3.5-5.1) mmol/L Chloride 109 H (98-107) mmol/L Carbon Dioxide 28 (21-32) mmol/L Anion Gap 4 (3-11) BUN 19 (6-23) mg/dl Creatinine 0.86 (0.6-1.2) mg/dl Est Cr Clr Drug Dosing 51.7 ml/min Est GFR ( Amer) 72.4 ml/min Est GFR (Non-Af Amer) 62.5 ml/min BUN/Creatinine Ratio 22.1 H (10-20) Glucose 83 (70-99(Fasting)) mg/dl Calcium 7.7 L (8.5-10.1) mg/dl Magnesium 1.8 (1.7-2.4) mg/dl Troponin I High Sens (0-14) pg/ml Stl C. cayetanensis PCR (NotDetected) Stool Rotavirus A PCR (NotDetected) Stl Adenov F 40/41 PCR (NotDetected) Stool Astrovirus (PCR) (NotDetected) Stool Campylobacter PCR (NotDetected) Stl C. diff Tox B Gene Positive Cdiff Gene H (Neg) Stl C.difficile Tox A&B Negative Cdiff Toxin (Negative) Stool Cryptosporidium PCR (NotDetected) Stl E.coli Shiga Tox PCR (NotDetected) Stl Enterotoxigenic E PCR (NotDetected) Stool EPEC (PCR) (NotDetected) Stool EAEC (PCR) (NotDetected) Stl E. histolytica PCR (NotDetected) Stool Giardia Lamblia PCR (NotDetected) Stool Salmonella PCR (NotDetected) Stool Sapovirus (PCR) (NotDetected) Stl P. shigelloides PCR (NotDetected) Stl Shigella/EIEC PCR (NotDetected) St Y.enterocolitica PCR (NotDetected) Stool Vibrio (PCR) (NotDetected) Stl Vibrio cholerae PCR (NotDetected) Stl Norovirus GI/GII PCR (NotDetected) 06/26/22 Range/Units 17:02 WBC 8.38 (4.8-10.8) K/ul RBC 3.33 L (4.20-5.40) M/uL Hgb 10.8 L (12.0-16.0) g/dl Hct 31.5 L (37.0-47.0) % MCV 94.6 (80.0-100.0) fL MCH 32.4 (25.0-34.0) pg MCHC 34.3 (32.0-36.0) g/dL RDW Std Deviation 45.7 (36.4-46.3) fL RDW Coeff of Abraham 13.2 (11.5-14.5) % Plt Count 220 (130-400) K/uL MPV 10.7 (9.4-12.4) fL Immature Gran % (Auto) % Neut % (Auto) % Lymph % (Auto) % [place] % (Auto) % Eos % (Auto) % Baso % (Auto) % Neut # (Auto) (1.40-6.50) K/uL Lymph # (Auto) (1.2-3.4) K/uL [place] # (Auto) (0.11-0.59) K/uL Eos # (Auto) (0-0.50) K/uL Baso # (Auto) (0-0.2) K/uL Immature Gran # (Auto) (0.01-0.20) K/uL Sodium (136-145) mmol/L Potassium (3.5-5.1) mmol/L Chloride (98-107) mmol/L Carbon Dioxide (21-32) mmol/L Anion Gap (3-11) BUN (6-23) mg/dl Creatinine (0.6-1.2) mg/dl Est Cr Clr Drug Dosing ml/min Est GFR ( Amer) ml/min Est GFR (Non-Af Amer) ml/min BUN/Creatinine Ratio (10-20) Glucose (70-99(Fasting)) mg/dl Calcium (8.5-10.1) mg/dl Magnesium (1.7-2.4) mg/dl Troponin I High Sens (0-14) pg/ml Stl C. cayetanensis PCR (NotDetected) Stool Rotavirus A PCR (NotDetected) Stl Adenov F 40/41 PCR (NotDetected) Stool Astrovirus (PCR) (NotDetected) Stool Campylobacter PCR (NotDetected) Stl C. diff Tox B Gene (Neg) Stl C.difficile Tox A&B (Negative) Stool Cryptosporidium PCR (NotDetected) Stl E.coli Shiga Tox PCR (NotDetected) Stl Enterotoxigenic E PCR (NotDetected) Stool EPEC (PCR) (NotDetected) Stool EAEC (PCR) (NotDetected) Stl E. histolytica PCR (NotDetected) Stool Giardia Lamblia PCR (NotDetected) Stool Salmonella PCR (NotDetected) Stool Sapovirus (PCR) (NotDetected) Stl P. shigelloides PCR (NotDetected) Stl Shigella/EIEC PCR (NotDetected) St Y.enterocolitica PCR (NotDetected) Stool Vibrio (PCR) (NotDetected) Stl Vibrio cholerae PCR (NotDetected) Stl Norovirus GI/GII PCR (NotDetected) PG Care Time/CCT Total # of Minutes Spent Total Time Spent with Patient: Total time spent is greater than 50% in coordination of care (as documented) at patient's floor/unit and/or counseling patient: Coding Level of Care Code 07224 SUB INP/OBS CARE 3/50MIN Diagnoses Allergic reaction T78.40XA Encounter type: initial encounter Pruritus L29.9 MUMTAZ (acute kidney injury) N17.9 Presence of bare metal stent in right coronary artery Z95.5 Seizure disorder G40.909 Chronic kidney disease N18.9 Aortic stenosis I35.0 Diarrhea R19.7 (1) Allergic reaction Encounter type: initial encounter Qualified Code(s): T78.40XA - Allergy, unspecified, initial encounter
[2022-06-27 07:43] LABS: Calcium 7.7 mg/dl (8.5-10.1); Magnesium 1.8 mg/dl (1.7-2.4); Potassium 3.7 mmol/L (3.5-5.1)
[2022-06-27 07:49] LABS: BUN Creatinine Ratio 22.1 (10-20); Creatinine Clr Calc Pharmacy 51.7 ml/min; Est GFR (African American) 72.4 ml/min; Est GFR (Non-African American) 62.5 ml/min
[2022-06-27] MEDS: CETIRIZINE HCL 10 MG TABLET PO SCH ×2 (08:09→21:00)
[2022-06-27] MEDS: predniSONE 20 MG TAB PO SCH (08:09)
[2022-06-27] MEDS: FAMOTIDINE 40 MG TABLET PO SCH ×2 (08:09→21:00)
[2022-06-27] MEDS: METOPROLOL SUCC 50MG EXT REL TAB PO SCH (08:09)
[2022-06-27] MEDS: ASPIRIN 81 MG ECTAB PO SCH (08:09)
[2022-06-27] MEDS: hydrOXYzine HCl 25 MG TAB PO SCH ×3 (08:09→21:00)
[2022-06-27] MEDS ORDERED: FUROSEMIDE 20 MG TAB PO ONE (09:28)
[2022-06-27] MEDS ORDERED: POTASSIUM CHLORIDE CRTAB 20 MEQ TABCR PO STA (10:15)
[2022-06-27] MEDS ORDERED: FUROSEMIDE INJ 20 MG/2 ML VIAL IV ONE (10:15)
[2022-06-27] MEDS: ALBUTEROL HFA 8 GM INHALER INH PRN (12:30)
[2022-06-27 13:54] LABS: Cdiff Toxin B Gene (2yr or >) Positive Cdiff Gene (Neg)
[2022-06-27 14:22] LABS: Adenovirus F 40/41 PCR Not Detected (NotDetected); Astrovirus PCR Not Detected (NotDetected); Campylobacter PCR Not Detected (NotDetected); Cryptosporidium PCR Not Detected (NotDetected); Cyclospora cayetanensis PCR Not Detected (NotDetected); Entamoeba histolytica PCR Not Detected (NotDetected); Enteroaggregative E.coli(EAEC) Not Detected (NotDetected); Enteropathogenic E.coli (EPEC) Not Detected (NotDetected); Enterotoxigenic E.coli (ETEC) Not Detected (NotDetected); Giardia lamblia PCR Not Detected (NotDetected); Norovirus GI/GII PCR Not Detected (NotDetected); Plesiomonas shigelloides PCR Not Detected (NotDetected); Rotavirus A PCR Not Detected (NotDetected); Salmonella PCR Not Detected (NotDetected); Sapovirus PCR Not Detected (NotDetected); Shiga-like Toxin E.coli (STEC) Not Detected (NotDetected); Shigella/Enteroinvasive E.coli Not Detected (NotDetected); Vibrio cholerae PCR Not Detected (NotDetected); Vibrio species PCR Not Detected (NotDetected); Yersinia enterocolitica PCR Not Detected (NotDetected)
[2022-06-27 14:36] LABS: Cdiff Antigen Positive; Cdiff Toxin A+B Negative Cdiff Toxin (Negative)
--- NOTE | 2022-06-27 15:35 | Electrocardiogram Report ---
Test Reason : Blood Pressure : / mmHG Vent. Rate : 077 BPM Atrial Rate : 077 BPM P-R Int : 168 ms QRS Dur : 078 ms QT Int : 372 ms P-R-T Axes : 067 001 017 degrees QTc Int : 420 ms Sinus rhythm with marked sinus arrhythmia Otherwise normal ECG When compared with ECG of 24-JUN-2022 10:02, Premature atrial complexes are no longer Present Nonspecific T wave abnormality no longer evident in Lateral leads Confirmed by [place] [id number]) on 06/27/2022 3:34:59 PM Referred By: REFERRED SELF Confirmed By:Steve Kinney
[2022-06-27 16:04] LABS: Calcium 8.5 mg/dl (8.5-10.1); Potassium 4.3 mmol/L (3.5-5.1)
[2022-06-27 16:10] LABS: BUN Creatinine Ratio 23.2 (10-20); Creatinine Clr Calc Pharmacy 44.9 ml/min; Est GFR (African American) 61.1 ml/min; Est GFR (Non-African American) 52.7 ml/min
[2022-06-27] MEDS: LOSARTAN POTASSIUM 25 MG TAB PO SCH (17:19)
[2022-06-27 17:49] LABS: Appearance Urine Clear (Clear); Bacteria Urine Automated Negative (Negative); Bilirubin Urine Negative (Negative); Blood Urine Trace (Negative); Cast Urine Automated 0 /lpf (0-5); Color Urine Yellow; Epithelial Cell Urine Auto 0-5 /lpf (0-5); Glucose Urine UA Negative (Negative); Ketones Urine Negative (Negative); Leukocyte Esterase Urine Trace (Negative); Nitrite Urine Negative (Negative); Protein Urine Negative (Negative); RBC Urine Automated 0-4 /hpf (0-4); Specific Gravity Urine 1.007 (1.000-1.030); Urobilinogen Urine Negative (Negative)
[2022-06-27 18:11] LABS: Adenovirus PCR Not Detected (NotDetected); Bordetella parapertussis PCR Not Detected (NotDetected); Bordetella pertussis PCR Not Detected (NotDetected); Chlamydia pneumoniae PCR Not Detected (NotDetected); Coronavirus 229E PCR Not Detected (NotDetected); Coronavirus CoV-2 (COVID19)PCR Not Detected (NotDetected); Coronavirus HKU1 PCR Not Detected (NotDetected); Coronavirus NL63 PCR Not Detected (NotDetected); Coronavirus OC43PCR Not Detected (NotDetected); Human Metapneumovirus PCR Not Detected (NotDetected); Influenza A PCR Not Detected (NotDetected); Influenza B PCR Not Detected (NotDetected); Mycoplasma pneumoniae PCR Not Detected (NotDetected); Parainfluenza Virus 1 PCR Not Detected (NotDetected); Parainfluenza Virus 2 PCR Not Detected (NotDetected); Parainfluenza Virus 3 PCR Not Detected (NotDetected); Parainfluenza Virus 4 PCR Not Detected (NotDetected); Respiratory Syncytial VirusPCR Not Detected (NotDetected); Rhinovirus/Enterovirus PCR Not Detected (NotDetected)
[2022-06-27] MEDS: MONTELUKAST SODIUM 10 MG TABLET PO SCH (20:59)
[2022-06-27] MEDS: PHENobarbitaL 30 MG TAB PO SCH (20:59)
--- NOTE | 2022-06-28 07:30 | Ultrasound Report ---
BILATERAL LOWER EXTREMITY VENOUS DOPPLER HISTORY: Leg swelling. r/o DVT COMPARISON STUDY: None. FINDINGS: There is normal compressibility, flow, and augmentation within the bilateral lower extremit y deep venous systems. IMPRESSION: No DVT within the right or left lower extremity. ACT 112: Negative or not required by law. Electronically signed by: Fabián Cee M.D. 06/28/2022 7:28 AM
[2022-06-28] MEDS ORDERED: hydrOXYzine HCl 25 MG TAB PO PRN (07:56)
--- NOTE | 2022-06-28 07:59 | Hospitalist Progress Note ---
Date of Service June 28, 2022 Assessment & Plan Admission and Anticipated Discharge Date Admission Date: June 26, 2022 Results & Data Results & Data ([facility]) Vital Signs (Past 12 Hours) Vital Signs Temp Pulse Pulse Resp BP Pulse Ox Pulse Ox 06/28/22 07:57 37.0 C 73 18 134/69 94 06/28/22 02:46 65 94 06/27/22 23:12 06/27/22 23:06 36.5 C 67 16 129/82 97 06/27/22 21:39 66 95 O2 Del Method O2 Del Method FiO2 06/28/22 07:57 Room Air 06/28/22 02:46 Room Air 06/27/22 23:12 Room Air 06/27/22 23:06 Room Air 06/27/22 21:39 Room Air 21 PG Care Time/CCT Total # of Minutes Spent Total Time Spent with Patient: Total time spent is greater than 50% in coordination of care (as documented) at patient's floor/unit and/or counseling patient: Coding
[2022-06-28] MEDS: ASPIRIN 81 MG ECTAB PO SCH (08:24)
[2022-06-28] MEDS: METOPROLOL SUCC 50MG EXT REL TAB PO SCH (08:24)
[2022-06-28] MEDS: FAMOTIDINE 40 MG TABLET PO SCH (08:24)
[2022-06-28] MEDS: CETIRIZINE HCL 10 MG TABLET PO SCH (08:24)
[2022-06-28] MEDS: LOSARTAN POTASSIUM 25 MG TAB PO SCH (08:25)
[2022-06-28 08:45] LABS: Hematocrit (blood only) 34.8 % (37.0-47.0); Hemoglobin 11.8 g/dl (12.0-16.0); Mean Corpuscular Hemoglobin 32.6 pg (25.0-34.0); Mean Corpuscular Hgb Conc 33.9 g/dL (32.0-36.0); Mean Corpuscular Volume 96.1 fL (80.0-100.0); Platelet Count 248 K/uL (130-400); RDW Coefficient of Variation 13.2 % (11.5-14.5); RDW Standard Deviation 46.8 fL (36.4-46.3); Red Blood Count 3.62 M/uL (4.20-5.40); White Blood Count 7.25 K/ul (4.8-10.8)
[2022-06-28] MEDS ORDERED: predniSONE 50 MG TAB PO SCH (09:00)
[2022-06-28 09:11] LABS: Basophils # (auto) 0.03 K/uL (0-0.2); Basophils % (auto) 0.4 %; Eosinophils # (auto) 0.29 K/uL (0-0.50); Immature Granulocytes % (auto) 5.5 %; Lymphocytes # (auto) 2.42 K/uL (1.2-3.4); Lymphocytes % (auto) 33.4 %; Monocytes % (auto) 8.3 %; Neutrophils # (auto) 3.51 K/uL (1.40-6.50); Neutrophils % (auto) 48.4 %
--- NOTE | 2022-06-28 11:45 | Discharge Summary ---
Date of Service June 28, 2022 Admission HPI Per Admitting Provider Primary Care Provider: Jesse Ward DO Delilah is a 81-year-old female with a past medical history of seizure disorder, CKD, hypertension, bare-metal stenting of the right coronary artery, and asthma who presents for recurrent episodes of rash with tongue swelling. She was diagnosed with UTI on 5 days of Macrobid with the last dose last , rash developed 2 days later on Thursday and recurred. She was seen in the emergency department 06/22/2022 for itching and generalized weakness and on ER provider evaluation was found to have a diffusely pruritic red rash sparing the torso. Has had an allergic reaction in the past to vaccination. Past allergies with a rash to influenza vaccination, nickel, penicillin, vaccine Qing emotions, alendronate, and blisters to allantoin. Was on Macrobid 5 days which ended last . First developed rash Thursday evening, 3 days later. No other medication changes other than having benadryl ordered. 7 day pack of prednisone. Had hives with Prevnar, no respiratory symptoms. That improved with prednise No new creams, champoos, detergents, topics. 'No changes for years.' 'Only other thing that is different is that the laundry machine mechanic changed our water filter two Fridays ago. Nothing else is different.' no new foods. +nausea. Small amount of clear vomiting yesterday. [facility] good after seen in ER, but as soon as she was home for a few hours got worse again. Minimal diarrhea 1 day ago. [facility] so tired and weak that she sat down on the carpet with quilts and 'was comfortable, but so miserable I just wanted to sleeo' and stayed there for several hours. "I can't keep coming every day and getting worse.' No chest pain, at bedside no wheezing/shortness of breath but did have tongue swelling and some difficulty breathing and was given IM epi, 125 Solu-Medrol, 50 mg IV Benadryl by EMS Did feel a lump n her throat/tongue which has improved. Patient reports her eyes were so swollen they were nearly swollen shut, this has improved and she has no vision problems at bedside exam EKG: Normal sinus rhythm, PACs, QTC 454, no territorial ST segment changes Medical History: Reviewed Medications: Reviewed Surgical History: Reviewed Allergies: Reviewed Social History: Reviewed Code Status: Full code Admission Exam Per Admitting Provider General: A&Ox3. NAD. Cooperative. Skin: See photos below. Erythematous, pruritic rash on chest, back, legs bilaterally, arms bilaterally, fingers. Trace residual left greater than right lip swelling, no tongue swelling, uvula midline. HEENT: Atraumatic, normocephalic. Vision/hearing intact. Pulm: CTAB A&P. -wheezes, -rales, -rhonchi. Symmetrical chest rise. No increased work of breathing. No respiratory distress. Cardiac: Regular, tachycardic, -mrg. Radial pulses intact and symmetrical. Abdominal: Nontender, nondistended, soft. BS present. Principal Diagnosis Angioedema, Allergic Reaction Discharge Exam General: WD/WN female laying in bed, NAD, rash improved, fatigued but stating ready to go home Head/skin normocephalic, atraumatic, rash much improved to face, almost completely resolved, nontender. chest almost resolved from prior stickers resp - diminished in the bases, no w/c/r, on room air cv- regular rate/rhythm, +sysolic murmur, 1+ LE edema, no calf tenderness, pulses palpable GI- +BS, soft/NT MSK/Neuro: no focal deficit psych- aox3, pleasant and cooperative Discharge Data Allergies Allergy/AdvReac Type Severity Reaction Status Date / Time influenza virus vaccine tvs Allergy Intermediate rash Verified 06/22/22 17:47 (65 yr and up) [From Fluad (65yr+)(PF)] nickel Allergy Intermediate RASH Verified 06/22/22 17:47 Penicillins Allergy Intermediate RASH Verified 06/22/22 17:47 vaccine adjuvant emulsion Allergy Intermediate rash Verified 06/22/22 17:47 [id number].1 [From Fluad (65yr+)(PF)] emollient combination no. 46 Allergy Unknown Unknown Verified 06/22/22 17:47 [From Mederma] pneumococcal 7-valent Allergy Unknown Unknown Verified 06/22/22 17:47 conjugate to [From Prevnar] alendronate sodium AdvReac Intermediate CHEST Verified 06/22/22 17:47 DISCOMFORT AND INDIGESTION allantoin AdvReac Mild MEDERMA - Verified 06/22/22 17:47 BLISTERS Consultations 06/24/22 11:05 ED Decision to Admit Stat 06/24/22 12:25 Consult Allergy / Immunology Routine Ordered Studies Chest X-Ray 06/24/22 09:55 XR chest 1V portable HISTORY: weakness COMPARISON: Chest 06/23/2022. FINDINGS: The lungs are clear. Cardiac silhouette is normal in size. No pleural effusions. No pneumothorax. IMPRESSION: No acute process. ACT 112: Negative or not required by law. Electronically signed by: Fabián Cee M.D. 06/24/2022 11:11 AM Chest X-Ray 06/26/22 10:10 XR chest 1V portable CLINICAL HISTORY: low grade temp, eval atelectasis TECHNIQUE: Single frontal radiograph of the chest was obtained. Comparison: Comparison is made to chest radiograph 06/24/2022 FINDINGS: No lines and tubes are seen. The cardiomediastinal silhouette is normal. The lungs are clear. No evidence of pleural effusion or pneumothorax. IMPRESSION: No acute chest disease. ACT 112: Negative or not required by law. Electronically signed by: Chacorta Kennedy M.D. 06/26/2022 10:44 AM Venous Doppler Study 06/27/22 16:38 BILATERAL LOWER EXTREMITY VENOUS DOPPLER HISTORY: Leg swelling. r/o DVT COMPARISON STUDY: None. FINDINGS: There is normal compressibility, flow, and augmentation within the bilateral lower extremity deep venous systems. IMPRESSION: No DVT within the right or left lower extremity. ACT 112: Negative or not required by law. Electronically signed by: Fabián Cee M.D. 06/28/2022 7:28 AM Hospital Course (1) Allergic reaction: Allergic reaction, idiopathic angioedema -- started after course macrobid given for UTI. Only other medication change/difference is her phenobarbital to 100mg as having supply issues at pharmacy w/ her prior 97.6mg dosing, unlikely cu lprit. Multiple ER visits w/ steroids/antihistamines and discharge and rebound right back, ultimately needing admitted for treatment WBC 12.2k on admit, no significant eosinophilia (prior elevations, being monitored by her doctor reported) Phenobab level normal Tryptase level pending --> messaged on day of discharge elevated to 57, could have underlying mast cell disorder. Discussed w/ Dr Magana and will f/u outpt and repeat testing. Did discuss these findings with patient and her son Alonzo CXR without acute process Lactic 2.3--> 1.2 Lisinopril (on at baseline for CAD), HELD and DISCONTINUED Biofire negative, stool pcr negative CK was elevated to 688-- laying on ground after fall for several hours. ?low susp for dermatomyositis but not excluded (hx PMR, however doesn't appear to actually have this diagnosis). Could consider f/u Rheum depending repeat testing w/ allergy/immunology Patient had been tachycardic w/ low BPs overnight 06/24- bolus IVF ordered w/ epi x 1 and prednisone 30mg PO x 1 and had been placed on supplemental O2 but titrated to RA this afternoon Allergy/Immunology consulted * Reviewed allergy/immunology note and ordered additional 30mg prednisone to make 60mg today and plan 60mg x2 days, then decrease 50 mg x 2 days (for AM 06/28), 40 mg x 2 days, 30mg x 2 days, 20 mg x 2 days, 10 mg x 2 days. * Started famotidine 40mg BID, montelukast 10mg (first dose now), and changed Vistaril to 25mg Q8H prn from 10mg HS (asked to give dose now given itching reported), continue zyrtec BID * Will need f/u allergy/immunology at d/c - already arranged Also sent with Epi-pen in case any issues at home IVF discontinued 06/25, had given dose of lasix 20mg IV x 1 06/26 for LE edema, repeat 20mg IV dose afternoon 06/27 with improvement in edema/BUN/Cr Decision to give additional dose of lasix prior to discharge but instructed if any worsening edema/weight gain to contact PCP as may need low dose diuretic Rash almost completely resolved PT/OT consulted w/o needs, however concerns w/ falls at home and home health arranged by case management with therapy. Discussed medications and reviewed completely with son Alonzo prior to discharge. He was upset previously about an early discharge given multiple ER visit/discharge home, which as discussed is understandable. Did arrange therapy as stated. I did leave him an extensive voicemail on 06/27 regarding plan and that we would plan for discharge 06/28. All medication changes were reviewed, by "taper" "scheduled medications" and "as needed" for ease and reference. He was concerned about multiple new medications and taking these. Encouraged a pill box for use to help to not forget medications but also outlined ONCE vs TWICE daily in written portion of discharge instructions. He then became upset that he was going to have to fiber picker medications for his mother this evening and no one called that they were ready. I assured him I sent the medications over 48 hours ago and PERSONALLY spoke with Pharmacist at [facility] to ensure correct Epi-Pen for patient and that they would be ready. Of note, he was also then upset HH wasn't going to be there tomorrow (Thursday) and discussed as patient not discharged on Thursday for Thursday start, that is how they are arranged and there isn't anything regarding that that I would be able to change right now. I additionally discussed willing to keep patient overnight for monitoring if there were concerns and patient declined. He then inquired about walker/cane, and discussed just for safety would ensure an assistive device, he states possibly they had old walker at home. I instructed him to let me know if this was needed. I never heard back and after checking back in afternoon to see if any further issues before discharge and patient was discharged but mentioned to nursing he was in disbelief about not being provided a walker (although didn't say they didn't have one at home) or a cane (RN stated cane present in room, I personally saw this as well). Messaged service excellence to follow up as well as case management to ensure if they would like a walker would be happy to provide a prescription for such. I certify that this patient is under my care and that I, or a physicians assistant auto center manager working with me, had a face to-face encounter that meets the home health [id number] encounter requirements with this patient. The encounter with the patient was in whole, or in part, for the following medical condition, which is the primary reason for home health care (list medical condition): I certify that, based on my findings, the following services are medically necessary home health services: My clinical findings support the need for the above services because: OT Assess ADL Status and Restore Function w ADLs PT Assessment for Endurance / Balance / Strength Skilled Nsg Assessment Further, I certify that my clinical findings support that this patient is homebound (i.e. absences from home require considerable and taxing effort and are for medical reasons or taoism services or infrequently or of short duration when for other reasons) because: Certification for Home Health Services: Based on the above findings, I certify that this patient is confined to the home and needs intermittent long-term care, physical therapy and/or speech therapy or continues to need occupational therapy. The patient is under my care, and I have initiated the establishment of the plan of care. This patient will be followed by a physician who will periodically review the plan of care. (2) Pruritus: controlled with famotidine, Vistaril as above -- discussed can use vistaril prn to prevent sleepiness/fatigue and use as needed for pruritic discomfort (3) MUMTAZ (acute kidney injury): Cr 1.4 on 06/23 in ER, 0.96 on admit Had received MULTIPLE liters of fluid prior ER admissions w/ steroids, additional bolus when hypotensive w/ epi and developed increased swelling in patient w/ underlying aortic stenosis multiple doses lasix provided, Cr stable 0.87 prior to discharge even w/ starting losartan for blood pressure on 06/27 (4) Presence of bare metal stent in right coronary artery: CAD, history of BMS RCA 2002 No anginal/anginal equivalents recently Has had postural hypotension/lightheadedness in the past ECHO w/ LV systolic function normal, LV without wma, mild ventricular systolic pressure elevated 40-50mmg, EF 60-65% Continued aspirin 81 mg daily Lisinopril DISCONTINUED, started losartan and can titrate as needed for BP (suspect aspect of anxiety given her multiple reports of wanting to go home and not stay overnight) Continued metoprolol 100mg daily F/u her air pollution control engineer Dr Steel at discharge Elevated troponin Without acute EKG changes, last stroke 06/22/2022 was 6.2; ER initial troponin 89.7 without clinical chest pain and trended down on repeat. Suspect demand in setting of above -- repeat today w/o elevation ECHO w/o wall motion abnormalities, mild valvular aortic stenosis Monitoring on telemetry without issue Hypertension Had been controlled/low, then increased since d/c lisinopril and decision to start losartan 25mg daily F/u cards/pcp at discharge encourage (5) Seizure disorder: Continued on phenobarbital 100 mg nightly daily, patient stable on this for many years. (recently to 100mg in past 6 weeks from slightly lower dose given issues w/ availability) No fever, no lymphadenopathy. Low suspicion for rheumatic drug reaction/antiepileptic Rxn. ?if any issues w/ our medication while inpatient to be considered given different than at home? no increased rash did message allergy/immunology for concerns, did not feel DRESS related We will continue at this time Stable renal cyst, angiomyolipoma Follows with urology as outpatient with surveillance imaging No acute change at this time Polymyalgia/arthralgia Follows with Ortho as outpatient, has a history of left shoulder tendinopathy Has followed with pain management and doctors are in 2016, with spondylolisthesis occasionally using prednisone burstsno acute management at this time Appears DOES NOT have hx PMR as outlined on admit Did have mild rhabdo w/ ck in 600s on admit, resolved on repeat. TSH wnl 1.1 DVT prophylaxis: Heparin twice daily -- held given drop in hgb, however checking venous doppler given LE edema, slightly worse on the left to ensure no DVT given repeated falls -- VENOUS DOPPLER NEGATIVE BILATERAL LE Hgb 11.8, no bleeding reported (6) Chronic kidney disease: (7) Aortic stenosis: on echo, murmur appreciated on exam. had some increased edema, almost completely resolved to UE 06/27 but had some LE edema Additional lasix provided in the evening and again morning of discharge w/ LE edema at baseline and shoes on (had tough time fitting) Encouraged to f/u PCP for any weight gain or increased swelling for low dose diuretic while on steroids (also placed lit hose, encouraged elevation) but decision not to send at discrge to prevent dizziness/lightheadedness or any further falls at this time. (8) Diarrhea: checking cdiff given report foul smelling stool this am/hospitalization cdiff gene positive but toxin NEGATIVE monitor for further issues, couple loose stools, not >10 or worsening. discussed if any worsening or other issue to please contact pCP Plan continued inpatient stay Total Time Total Time Spent Total Time Spent (In Minutes): 120 Discharge Plan Discharge Items Patient Disposition: Home - Home Health Services Reason For Visit: ALERGIC RXN W/ ANGIOEDEMA, CARDIAC EVAL Discharge Diagnosis: Allergic Reaction Goals: You have been hospitalized for an acute medical problem. During your stay at [facility], we have made an effort to correct the problem that brought you to the hospital while keeping you as comfortable as possible. Medications were used to bring your condition under control and your discharge instructions will include directions for any medications you should take after leaving the hospital. Please make sure you see your Primary Care Provider as part of your follow up plan. Activity: As commented below Activity Comment: use walker and/or cane with ambulation Non-emergency contact: Primary Care Provider, Specialist and Triage Rn Call non-emergency contact if: you have any medication questions, your symptoms worsen and you have a fever Follow-up/Referrals: Landy Pittman PA-C [Physician Silver Designer] - 07/03/22 2:30 pm (Allergy/Immunology hospital follow up Please arrive 15 minutes prior to appointment time.) Chadd Steel Jr, MD, FACC [Physician] - (2-4 weeks) Jesse Ward DO [Primary Care Provider] - 07/04/22 2:45 pm Diet: Heart Healthy Addtl Attending Provider Instructions: You have been hospitalized for an allergic reaction/angioedema. We have consulted allergy/immunology, and recommendations for treatment with steroids/antihistamines as follows: Taper: * Prednisone 50mg tomorrow, then decrease to 50mg for two days, then decrease to 40mg x 2 days, 30mg x 2 days, then 20mg x 2 days, then 10mg x 2 days (you will have a couple extra left over as these were sent early) Scheduled medications: * Cetirizine (zyrtec) 10mg by mouth TWICE daily (allergy medication) * Famotidine (pepcid) TWICE A DAY -- also works peripherally as an antihistamine * Montelukast (singular) - 10mg ONCE daily -- this also for allergies and leukotriene inhibitor As needed medications: * Hydroxyzine 25mg as needed every 8 hours for itching * Albuterol inhaler -- 1-2 puffs every 4 hours as needed for shortness of breath/wheezing. We have also sent epi pen in case of any allergic reactions in the future to use and report to ER RAZA. You will have follow up with Dr Magana's office after discharge to allergy testing, and this will confirm or not whether this is from the Macrobid or possibly something else. Your Tryptase level came back elevated, which could mean an underlying mast cell disorder/cause for the reaction, but I discussed this with Dr Magana and he stated you were ok for discharge and will need repeat testing once symptoms resolved in follow up. If you have any issues, Dr Magana wants you to call their office at [phone]. It may also be worth discussing follow up with pulmonology for pulmonary function testing to see if you don't have an underlying element of asthma. We have stopped your lisinopril as well, and your blood pressures had been quite well controlled off this medication. We recommend you continue to STOP this medication at discharge. We have started low dose losartan 25mg daily and your blood pressure is better controlled. We will continue this medication at discharge. We have had therapy evaluate you and case management is looking at the cost for private pay therapy at home as physical therapy evaluation in the hospital indicated you were stable for discharge home. They will follow up with you Thursday. Please follow up with your primary care in the next 7-10 days to monitor your progress after discharge. Please return if any increased rash/swelling, difficulty breathing, chest pain, increased weakness, or for any other symptoms you may be having. It has been a pleasure being a part of the medical team providing for you while you have been in the hospital. Take care! Pending Studies at Discharge: No Stand-Alone Forms: My [email or web address], Smoking Cessation Medications and DC Order Prescriptions: New cetirizine 10 mg Tablet 10 mg PO BID Qty: 60 0RF albuterol sulfate [Ventolin HFA] 90 mcg/actuation Hfa Aerosol Inhaler 2 puff inhalation Q4H PRN (Reason: shortness of breath or wheezing) Qty: 6.7 0RF famotidine 40 mg Tablet 40 mg PO BID Qty: 60 0RF montelukast [Singulair] 10 mg Tablet 10 mg PO HS Qty: 30 0RF hydroxyzine HCl 25 mg Tablet 25 mg PO Q8H PRN (Reason: itching) Qty: 60 0RF prednisone 20 mg tablet See Rx Instructions .ROUTE .COMPLEX Qty: 18 0RF Rx Instructions: please take 60mg x 1 day, then decrease to 50mg x 2 days, then 40mg x 2 days, then 20mg x 2 days, then 10mg x 2 days then stop EpinephrineSnap-V 1 mg/mL kit 0.5 mg IM Q4H PRN (Reason: anaphylaxis) Qty: 1 0RF losartan 25 mg Tablet 25 mg PO QAM Qty: 30 0RF Continued colesevelam 625 mg tablet 625 mg PO DAILY Qty: 90 3RF metoprolol succinate [Toprol XL] 100 mg tablet extended release 24 hr 100 mg PO DAILY Qty: 90 3RF atorvastatin 80 mg tablet 80 mg PO DAILY Qty: 90 3RF phenobarbital 100 mg tablet 100 mg PO HS Qty: 90 1RF estradiol 0.01 % (0.1 mg/gram) cream 1 g vaginal 3XWK Qty: 42.5 4RF multivitamin [Daily Multi-Vitamin] tablet 1 tab PO DAILY aspirin [Adult Low Dose Aspirin] 81 mg tablet,delayed release (DR/EC) 81 mg PO DAILY psyllium husk [Metamucil] 0.4 gram capsule 0.4 g PO DAILY PRN (Reason: constipation) omega 2-ejy-kve-fish oil [Fish Oil] 1,000 mg (120 mg-180 mg) capsule 1 cap PO BID cholecalciferol (vitamin D3) 125 mcg (5,000 unit) capsule 5,000 units PO DAILY PreserVision AREDS-2 [id number] rp-ecnq-wp-mg capsule 1 tab PO BID calcium carbonate 500 mg calcium (1,250 mg) Tablet 500 mg PO BID Discontinued lisinopril 5 mg tablet 5 mg PO DAILY methylprednisolone [Medrol (Josep)] 4 mg tablets,dose pack 4 mg PO UD Qty: 21 0RF Rx Instructions: BEGIN 06/22/22 : Take taper- down dose as directed until gone Discharge Orders: Discharge Order (Routine); Ordered 06/28/22 Ordered By: Cee Schultz/Other Patient Handouts: ED Medicine Reaction: Allergic, ED General Allergic Reactions Admission Data Admit Date/Time: 06/26/22 17:47 Attending Provider: Rey Reyes Admit Provider: Regulo Amaro Primary Care Provider: Jesse Ward Other Providers: Regulo Amaro ; Dayday Magana Other Interventions: Discharge Summary Assessment (RN) Last Done: 06/28/22 16:51 Supervising Physician Co-Signing Physician Notes The patient was seen by me prior to discharge. Case discussed with Cee Crouch, physicians assistant auto center manager. Agree with assessment and plan Coding Level of Care Code HOSP INP/OBS DISCH >30 MIN Diagnoses Allergic reaction T78.40XA Encounter type: initial encounter Pruritus L29.9 MUMTAZ (acute kidney injury) N17.9 Presence of bare metal stent in right coronary artery Z95.5 Seizure disorder G40.909 Chronic kidney disease N18.9 Aortic stenosis I35.0 Diarrhea R19.7
[2022-06-28 12:35] LABS: Albumin Level 3.1 gm/dl (3.4-5.0); Bilirubin,Total 0.3 mg/dl (0.2-1.0); Calcium 8.3 mg/dl (8.5-10.1); Magnesium 1.6 mg/dl (1.7-2.4); Potassium 3.6 mmol/L (3.5-5.1)
[2022-06-28 12:41] LABS: BUN Creatinine Ratio 19.5 (10-20); Est GFR (African American) 71.4 ml/min; Est GFR (Non-African American) 61.6 ml/min; Globulin 3.1 gm/dl (2.5-4.0); Total Protein 6.2 gm/dl (6.0-8.3)
[2022-06-28] MEDS ORDERED: POTASSIUM CHLORIDE CRTAB 20 MEQ TABCR PO STA (12:50)
[2022-06-28] MEDS ORDERED: FUROSEMIDE INJ 20 MG/2 ML VIAL IV ONE (12:50)
[2022-06-28] MEDS ORDERED: MAGNESIUM SULFATE / D5W 1 GM/100 ML BAG IV ONE (12:50)
[2022-06-30] MEDS ORDERED: predniSONE 20 MG TAB PO SCH (09:00)
[2022-07-02] MEDS ORDERED: predniSONE 10 MG TABLET PO SCH (09:00)
[2022-07-04] MEDS ORDERED: predniSONE 20 MG TAB PO SCH (09:00)
[2022-07-06] MEDS ORDERED: predniSONE 10 MG TABLET PO SCH (09:00)
== END 2022-06-28 16:52 | disposition home health service (06) | DRG 916 ==
LOC: EDINP 09:25 → ED 09:25 → SUATTDRO 11:49 → 2N 16:14 → SUATTDRO 06-26 17:47